=== PATIENT | male | born 1955 | race Two or more races ===

== ENCOUNTER → 2021-12-04 | Emergency (ER) | payer MEDICARE, OTHER ==
[~2021-12-04] VITALS: Ht 160 cm; Wt 77.1 kg
[~2021-12-04] MED LIST: HYDROcodone-ACET 5/325MG TAB ONE; HYDROcodone-ACET 5/325MG TAB PO ONE; TRAM-297 PO
[2021-12-04 16:56] VITALS: BP 113/69
== END | disposition home or self-care (01) ==
LOC: ER 15:51
DX: M23.91 Unspecified internal derangement of right knee (principal); I10 Essential (primary) hypertension; E03.9 Hypothyroidism, unspecified; Z79.899 Other long term (current) drug therapy
CPT/HCPCS: 73562

== ENCOUNTER 2022-08-03 11:19 | Emergency (ER) | payer MEDICARE, OTHER ==
[~2022-08-03] VITALS: Ht 160 cm; Wt 75.2 kg
[~2022-08-03 11:19] MED LIST changes: -HYDROcodone-ACET 5/325MG TAB ONE; -HYDROcodone-ACET 5/325MG TAB PO ONE
[2022-08-03 14:37] VITALS: BP 103/62
[2022-08-03] MEDS ORDERED: MUPI2CRE17 TOP (14:55)
== END 2022-08-03 15:02 | disposition home or self-care (01) ==
LOC: ER 11:19
DX: L73.9 Follicular disorder, unspecified (principal); B02.9 Zoster without complications; I10 Essential (primary) hypertension

== ENCOUNTER 2024-10-28 16:11 | Inpatient (IN) | payer MEDICARE, MEDICAID ==
[~2024-10-28] VITALS: Ht 160 cm; Wt 80.9 kg
[~2024-10-28 16:11] MED LIST changes: +MUPI2CRE17 TOP
--- NOTE | 2024-10-28 16:21 | ED.PDOC ---
History of Present Illness HPI Comments 69-year-old male brought by paramedics because of shortness a breath. Family members noticed that he has been having difficulty breathing while sitting and walking with his walker. His saturation when paramedics arrived was 90% on room air he was given a breathing treatments for which he had went up to 91%. His blood pressure on arrival was 94/60 with a heart rate 97. Family members were having the flu. Does have a history of CVA hypertension. His speech affected with CVA. Denies any other symptoms. Time Seen by MD: 16:15 Primary Care Provider: MUNA Reviewed Notes: Nurses Notes, Medications, Allergies Allergies: Coded Allergies: NO KNOWN ALLERGIES (Unverified , 08/03/22) Home Meds Active Scripts Mupirocin Calcium (Topical) (MUPIROCIN) 2 % Cre, 2 % TOP TID for 7 Days, #1 BOTTLE 0 Refills Prov:RENATA BRYANT 08/03/22 Tramadol Hcl (Ultram) 50 Mg Tab, 50 MG PO TID, #20 TAB Prov:LADONNA MORALES 12/04/21 Information Source: Patient, Emergency Med Personnel Mode of Arrival: EMS Severity: Moderate Timing: Hours Duration: Since onset Past Medical History PAST MEDICAL HISTORY: HTN, Thyroid Surgical History: Denies all surgeries Family History Family History: Reviewed,noncontributory to illness Social History Smoker: Non-Smoker Alcohol: Denies ETOH Use Drugs: Denies Drug Use Lives In: Home Constitutional: denies: chills, diaphoresis, fatigue, fever, malaise, sweats, weakness, others EENTM: denies: blurred vision, double vision, ear bleeding, ear discharge, ear drainage, ear pain, ear ringing, eye pain, eye redness, hearing loss, mouth pain, mouth swelling, nasal discharge, nose bleeding, nose congestion, nose pain, photophobia, tearing, throat pain, throat swelling, voice changes, others Respiratory: reports: shortness of breath; denies: cough, hemoptysis, orthopnea, SOB at rest, SOB with excertion, stridor, wheezing, others Cardiovascular: denies: chest pain, dizzy spells, diaphoresis, Dyspnea on e xertion, edema, irregular heart beat, left arm pain, lightheadedness, palpitations, PND, syncope, others Gastrointestinal: denies: abdomen distended, abdominal pain, blood streaked bowels, constipated, diarrhea, dysphagia, difficulty swallowing, hematemesis, melena, nausea, poor appetite, poor fluid intake, rectal bleeding, rectal pain, vomiting, others Genitourinary: denies: burning, dysuria, flank pain, frequency, hematuria, incontinence, penile discharge, penile sore, pain, testicle pain, testicle swelling, urgency, others Neurological: denies: dizziness, fainting, headache, left sided numbness, left sided weakness, numbness, paresthesia, pre-existing deficit, right sided numbness, right sided weakness, seizure, speech problems, tingling, tremors, weakness, others Musculoskeletal: denies: back pain, gout, joint pain, joint swelling, muscle pain, muscle stiffness, neck pain, others Integumetry: denies: bruises, change in color, change in hair/nails, dryness, laceration, lesions, lumps, rash, wounds, others Allergic/Immunocompromised: denies: Difficulty Healing, Frequent Infections, Hives, Itching, others Hematologic/Lymphatic: denies: anemia, blood clots, easy bleeding, easy bruising, swollen glands, others Endocrine: denies: excessive hunger, excessive sweating, excessive thirst, excessive urination, flushing, intolerance to cold, intolerance to heat, unexplained weight gain, unexplained weight loss, others Psychiatric: denies: anxiety, bipolar disorder, depression, hopeless, panic disorder, schizophrenia, sleepless, suicidal, others Physical Exam General Appearance: Moderate Distress HEENT: Normal ENT Inspection, Pharynx Normal, TMs Normal Neck: Full Range of Motion, Non-Tender, Normal, Normal Inspection Respiratory: Accessory Muscle Use, Other (Coarse breath sounds) Cardiovascular: No Edema, No JVD, No Murmur, No Gallop, Normal Peripheral Pulses, Regular Rate/Rhythm Breast Exam: Deferred Gastrointestinal: No Organomegaly, Non Tender, No Pulsatile Mass, Normal Bowel Sounds, Soft Genitalia: Deferred Pelvic: Deferred Rectal: Deferred Extremities: No calf tenderness, No pedal edema Musculoskeletal : Apperance: Normal Neurologic: Alert, No Motor Deficits, No Sensory Deficits, Speech Problem Cerebellar Function: NOT DONE Reflexes: NOT DONE Skin: Normal Color Peripheral Pulses: 3+ Radial (R), 3+ Radial (L) Lymphatic: No Adenopathy Was a procedure done? Was a procedure done?: No Differential Dx Considerations may include: Pneumonitis Viral infection X-Ray, Labs, Meds, VS Vital Signs Date Time Temp Pulse Resp B/P (MAP) Pulse Ox O2 Delivery O2 Flow Rate FiO2 10/28/24 16:45 98.3 98 21 101/56 (71) 93 98.3 10/28/24 16:39 24 92 Room Air* 0 21 10/28/24 16:18 98.1 100 22 94/64 (74) 94 Lab Test 10/28/24 16:40 Range/Units White Blood Count 9.6 4.4-10.8 10^3/uL Red Blood Count 4.96 4.5-5.90 10^6/uL Hemoglobin 15.2 13.5-17.5 g/dL Hematocrit 45.4 41.0-53.0 % Mean Corpuscular Volume 91.6 80.0-100.0 fL Mean Corpuscular Hemoglobin 30.6 28.0-32.0 pg Mean Corpuscular Hemoglobin Concent 33.4 32.0-36.0 g/dL Red Cell Distribution Width 14.0 11.8-14.3 % Platelet Count 137 L 140-450 10^3/uL Mean Platelet Volume 8.9 6.9-10.8 fL Neutrophils (%) (Auto) 50.7 37.0-80.0 % Lymphocytes (%) (Auto) 38.6 10.0-50.0 % Monocytes (%) (Auto) 10.3 0.0-12.0 % Eosinophils (%) (Auto) 0.1 0.0-7.0 % Basophils (%) (Auto) 0.3 0.0-2.0 % Neutrophils # (Auto) 4.9 1.6-8.6 10 ^3/uL Lymphocytes # (Auto) 3.7 0.4-5.4 10 ^3/uL Monocytes # (Auto) 1.0 0-1.3 10 ^3/uL Eosinophils # (Auto) 0 0-0.8 10 ^3/uL Basophils # (Auto) 0 0-0.2 10 ^3/uL Nucleated Red Blood Cells 0.1 % Sodium Level 141 136-145 mmol/L Potassium Level 3.9 3.5-5.1 mmol/L Chloride Level 110 H 98-107 mmol/L Carbon Dioxide Level 21 20-31 mmol/L Anion Gap 10 5-15 Blood Urea Nitrogen 35 H 9-23 mg/dL Creatinine 1.58 H 0.700-1.30 mg/dL Glomerular Filtration Rate Calc 47 >90 mL/min BUN/Creatinine Ratio 22.2 H 10.0-20.0 Serum Glucose 123 H 74-106 mg/dL Calcium Level 9.7 8.7-10.4 mg/dL Current Medications Medications (Trade) Dose Ordered Sig/Lalito Route Start Time Stop Time Status Last Admin Sodium Chloride 1,000 ml @ 150 mls/hr Q6H40M ONCE IV 10/28/24 16:30 10/28/24 23:09 10/28/24 16:58 Methylprednisolone Sodium Succinate (Solu Medrol) 125 mg ONCE ONCE IV 10/28/24 16:30 10/28/24 16:31 DC 10/28/24 16:58 Albuterol (Ventolin Medneb) 5 mg ONCE ONCE NEB 10/28/24 16:30 10/28/24 16:31 DC 10/28/24 16:39 Ipratropium [place] (Atrovent Medneb) 0.5 mg ONCE ONCE NEB 10/28/24 16:30 10/28/24 16:31 DC 10/28/24 16:39 Patient alert. Complaining of shortness a breath. Saturation in the 90s. Mentating well. Speech affected after his stroke. Possible pneumonitis. Possible pneumonia. Placed on oxygen. Was given steroid. Was given breathing treatment. BUN creatinine elevated. Blood sugar slightly elevated. Explained to the patient. Continue cardiac monitoring. Time of 1ST Reevaluation: 16:19 Reevaluation 1ST: Unchanged Patient Education/Counseling: Diagnosis, Treatment, Prognosis Family Education/Counseling: No Family Present Departure 1 Departure Time of Disposition: 16:20 Impression: Primary Impression: Pneumonitis Additional Impression: Chronic kidney disease Qualified Codes: N18.9 - Chronic kidney disease, unspecified Disposition: ADMITTED INPATIENT Admit to: Med Surg Condition: Guarded Critical Care Note Critical Care Time?: Yes (45 min-critical care time only) Critical care comment: Placed on oxygen Stability Stability form required: No Heart Score Heart Score: Heart Score Response (Comments) Value History N/A 0 EKG N/A 0 Age N/A 0 Risk Factors N/A 0 Troponin N/A 0 Total 0 SHANNON ROBERTS MD Oct 28, 2024 16:20
[2024-10-28] MEDS: ALBUTEROL SULF 2.5 MG/0.5ML(0.5%) NEB SOLN NEB ONE (16:39)
[2024-10-28] MEDS: IPRATROPIUM BROM 0.5 MG/2.5ML INH SOL NEB ONE (16:39)
[2024-10-28 16:54] LABS: Basophils # (auto) 0 10 ^3/uL (0-0.2); Basophils % (auto) 0.3 % (0.0-2.0); Eosinophils # (auto) 0 10 ^3/uL (0-0.8); Eosinophils % (auto) 0.1 % (0.0-7.0); Hematocrit 45.4 % (41.0-53.0); Hemoglobin 15.2 g/dL (13.5-17.5); Lymphocytes # (auto) 3.7 10 ^3/uL (0.4-5.4); Lymphocytes % (auto) 38.6 % (10.0-50.0); Mean Corpuscular Hemoglobin 30.6 pg (28.0-32.0); Mean Corpuscular Hgb Conc. 33.4 g/dL (32.0-36.0); Mean Corpuscular Volume 91.6 fL (80.0-100.0); Monocytes % (auto) 10.3 % (0.0-12.0); Neutrophils # (auto) 4.9 10 ^3/uL (1.6-8.6); Neutrophils % (auto) 50.7 % (37.0-80.0); Nucleated Red Blood Cells % 0.1 %; Platelet Count (auto) 137 10^3/uL (140-450); Red Blood Cells 4.96 10^6/uL (4.5-5.90); White Blood Cell 9.6 10^3/uL (4.4-10.8)
[2024-10-28] MEDS: methylPREDNISolone SOD SUCC 125 MG/2 ML VL IV ONE (16:58)
[2024-10-28] MEDS: SODIUM CHLORIDE 0.9% 1,000 ML IV ONE (16:58)
[2024-10-28 17:04] LABS: Potassium 3.9 mmol/L (3.5-5.1); Sodium 141 mmol/L (136-145)
[2024-10-28 17:05] LABS: Anion Gap 10 (5-15); Calcium 9.7 mg/dL (8.7-10.4); Carbon Dioxide 21 mmol/L (20-31)
[2024-10-28 17:09] VITALS: O2SAT 93
[2024-10-28 17:10] LABS: BUN/Creatinine Ratio 22.2 (10.0-20.0); Blood Urea Nitrogen 35 mg/dL (9-23); Chloride 110 mmol/L (98-107); Glucose 123 mg/dL (74-106)
--- NOTE | 2024-10-28 17:27 | ECG ---
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
--- NOTE | 2024-10-28 17:48 | DVH ---
CHEST RADIOGRAPH Indication: sob Technique: Single frontal view of the chest was obtained Comparison: None FINDINGS: Lines and Tubes: None Lungs: No focal consolidation. Bronchovascular crowding due to low lung volumes. Pleura: No effusion. No pneumothorax. Cardiomediastinal contours: Mild cardiomegaly. Bones: No acute osseous abnormality. Old right-sided rib fracture deformities IMPRESSION: Bronchovascular crowding due to low lung volumes. Underlying mild pulmonary vascular congestion can not be excluded.
[2024-10-28 19:01] LABS: Rapid Influenza A Negative (Negative); Rapid Influenza B Negative (Negative)
[2024-10-28 19:05] LABS: COVID19 ANTIGEN SOFIA FIA POSITIVE (NEGATIVE)
[2024-10-28 20:11] LABS: Urine Bacteria FEW /hpf (None Seen); Urine Blood 2+ /uL (Negative); Urine Clarity Turbid (Clear); Urine Color Yellow (Yellow); Urine Hyaline Cast MANY /lpf (0 - 2); Urine Mucus FEW (None Seen); Urine Protein, UAD 1+ (Negative); Urine Specific Gravity 1.024 (1.001-1.035); Urine Sperm PRESENT /hpf (None Seen); Urine Squamous Epithelial Cell FEW /hpf (<5); Urine Urobilinogen 2 mg/dL (Negative); Urine WBC 8 /HPF (0-3); Urine pH 5.5 (5.0-9.0)
[2024-10-28 21:41] LABS: INR 0.97 (0.9-1.15); Partial Thromboplastin Time 27.3 SEC (24.5-34.5); Prothrombin Time 10.3 sec (9.3-11.8)
[2024-10-28] MEDS ORDERED: REMDESIVIR PER PHARMACY 0 ML IV SCH (22:00)
[2024-10-28 22:08] LABS: Triglycerides 127 mg/dL (< 150)
[2024-10-28 22:09] LABS: LDL Cholesterol 34 mg/dL (< 100)
[2024-10-28 22:10] LABS: Cholesterol 80 mg/dL (< 200)
[2024-10-28 22:14] LABS: HDL Cholesterol 27 mg/dL (40-59)
[2024-10-28 22:15] LABS: Opiate Scree,Urine Pos (NEGATIVE); Phencyclidine Screen, Urine Neg (NEGATIVE)
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
[2024-10-28 22:22] LABS: Amphetamine Screen, Urine Neg (NEGATIVE); Barbiturate Scree,Urine Neg (NEGATIVE); Benzodiazephine Screen, Urine Neg (NEGATIVE); Cannabinoid Screen, Urine Neg (NEGATIVE); Cocaine Screen, Urine Neg (NEGATIVE)
[2024-10-29] VITALS (8 sets, daily range): BP systolic 103–118; BP diastolic 70–71; PULSE 89–119; RESP 16–24; TEMP 97.7–98.7; O2SAT 92–95
[2024-10-29 04:32] LABS: Basophils # (auto) 0 10 ^3/uL (0-0.2); Basophils % (auto) 0.1 % (0.0-2.0); Eosinophils # (auto) 0 10 ^3/uL (0-0.8); Hemoglobin 15.3 g/dL (13.5-17.5); Lymphocytes # (auto) 2.7 10 ^3/uL (0.4-5.4); Lymphocytes % (auto) 33.8 % (10.0-50.0); Mean Corpuscular Hemoglobin 30.6 pg (28.0-32.0); Mean Corpuscular Hgb Conc. 33.2 g/dL (32.0-36.0); Mean Corpuscular Volume 92.1 fL (80.0-100.0); Monocytes # (auto) 0.2 10 ^3/uL (0-1.3); Monocytes % (auto) 2.7 % (0.0-12.0); Neutrophils # (auto) 5.1 10 ^3/uL (1.6-8.6); Neutrophils % (auto) 63.4 % (37.0-80.0); Nucleated Red Blood Cells % 0.1 %; Platelet Count (auto) 138 10^3/uL (140-450); Red Cell Distribution Width 14.1 % (11.8-14.3); White Blood Cell 8.1 10^3/uL (4.4-10.8)
[2024-10-29 04:48] LABS: Albumin 4.5 g/dL (3.2-4.8); Alkaline Phosphatase 49 U/L (46-116); Anion Gap 10 (5-15); BUN/Creatinine Ratio 31.4 (10.0-20.0); Bilirubin, Total 0.9 mg/dL (0.2-1.0); Calcium 10.2 mg/dL (8.7-10.4); Carbon Dioxide 20 mmol/L (20-31); Potassium 4.7 mmol/L (3.5-5.1); Sodium 142 mmol/L (136-145); Total Protein 6.5 g/dL (5.7-8.2)
[2024-10-29 04:50] LABS: Alanine Aminotransferase 96 U/L (7-40); Aspartate Aminotransferase 273 U/L (13-40); Blood Urea Nitrogen 32 mg/dL (9-23); Chloride 112 mmol/L (98-107); Glucose 149 mg/dL (74-106)
[2024-10-29] MEDS ORDERED: REMDESIVIR 200mg in NS 210mL LOADING DOSE ADULT IV ONE (08:45)
[2024-10-29] MEDS: ATORVASTATIN 20 MG TAB PO SCH (09:41)
[2024-10-29] MEDS: cefTRIAXone 1GM/50ML D5W 50 ML IV SCH (09:41)
[2024-10-29] MEDS: DexAMETHasone SOD PHOS 10MG/1ML VIAL INJ IV SCH (09:42)
[2024-10-29] MEDS: ENOXAPARIN SOD 40 MG/0.4 ML SYRINGE SC SCH (09:43)
[2024-10-29] MEDS: AZITHROMYCIN 500MG/ 250ML 250 ML IV SCH (09:43)
[2024-10-29] MEDS: CALQUENCE 100 MG PO SCH ×2 (10:00→20:47)
[2024-10-29] MEDS ORDERED: ALBUTEROL SULF HFA 90MCG INH 200DOSE IN SCH (10:00)
[2024-10-29] MEDS ORDERED: IPRATROPIUM BROM 0.5 MG/2.5ML INH SOL NEB SCH (10:00)
[2024-10-29] MEDS ORDERED: ALBUTEROL SULF 2.5 MG/0.5ML(0.5%) NEB SOLN NEB SCH (10:00)
[2024-10-29] MEDS ORDERED: ENOXAPARIN SOD 40 MG/0.4 ML SYRINGE SC SCH (10:00)
[2024-10-29] MEDS: REMDESIVIR 200mg in NS 210mL LOADING DOSE ADULT IV ONE (10:30)
[2024-10-29 10:49] LABS: Free T4 (Free Thyroxine) 1.63 ng/dL (0.89-1.76)
[2024-10-29] MEDS: ALBUTEROL SULF HFA 90MCG INH 200DOSE IN SCH (11:25)
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
--- NOTE | 2024-10-29 16:43 | DVH ---
INDICATION: Transaminitis TECHNIQUE: Multiple real-time sonographic images of the abdomen were obtained. COMPARISON: None FINDINGS: Increased echogenicity of the liver compatible fatty infiltration Patient status post cholecystectomy Common bile duct measures 7.4 mm Pancreas not seen Right kidney is normal Difficult exam secondary body habitus No hydronephrosis No ascites Normal inferior vena cava No hepatomegaly IMPRESSION: 1. Mild fatty infiltration of the liver
[2024-10-29] MEDS: ACETAMINOPHEN 325 MG TAB PO PRN (21:57)
[2024-10-30] VITALS (11 sets, daily range): BP systolic 105–139; BP diastolic 48–94; PULSE 84–127; RESP 18–32; TEMP 97.8–100.3; O2SAT 91–98
[2024-10-30 06:23] LABS: Basophils # (auto) 0 10 ^3/uL (0-0.2); Basophils % (auto) 0.1 % (0.0-2.0); Eosinophils # (auto) 0 10 ^3/uL (0-0.8); Hematocrit 45.1 % (41.0-53.0); Hemoglobin 14.9 g/dL (13.5-17.5); Lymphocytes # (auto) 1.9 10 ^3/uL (0.4-5.4); Mean Corpuscular Hemoglobin 30.6 pg (28.0-32.0); Mean Corpuscular Volume 92.6 fL (80.0-100.0); Monocytes # (auto) 0.6 10 ^3/uL (0-1.3); Neutrophils # (auto) 7.5 10 ^3/uL (1.6-8.6); Neutrophils % (auto) 74.9 % (37.0-80.0); Nucleated Red Blood Cells % 0.1 %; Platelet Count (auto) 130 10^3/uL (140-450); Red Blood Cells 4.87 10^6/uL (4.5-5.90); White Blood Cell 10.1 10^3/uL (4.4-10.8)
[2024-10-30 06:37] LABS: Albumin 4.5 g/dL (3.2-4.8); Alkaline Phosphatase 50 U/L (46-116); Anion Gap 9 (5-15); BUN/Creatinine Ratio 28.7 (10.0-20.0); Bilirubin, Total 0.9 mg/dL (0.2-1.0); Carbon Dioxide 22 mmol/L (20-31); Potassium 4.1 mmol/L (3.5-5.1); Sodium 140 mmol/L (136-145); Total Protein 6.4 g/dL (5.7-8.2)
[2024-10-30 06:44] LABS: Alanine Aminotransferase 91 U/L (7-40); Aspartate Aminotransferase 192 U/L (13-40); Blood Urea Nitrogen 29 mg/dL (9-23); Calcium 10.6 mg/dL (8.7-10.4); Chloride 109 mmol/L (98-107); Glucose 114 mg/dL (74-106)
[2024-10-30] MEDS: ENOXAPARIN SOD 40 MG/0.4 ML SYRINGE SC SCH (10:17)
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
--- NOTE | 2024-10-30 13:17 | DVH ---
Bilateral lower extremity venous duplex Clinical History: Swelling Comparison: None Technique: Duplex Doppler evaluation of the deep venous systems of both lower extremities from the common femora l veins to the popliteal veins including color Doppler and spectral/pulsed waveform analysis was perf ormed. Findings: RIGHT SIDE: The common femoral vein demonstrates appropriate compressibility and waveform variability. There is compressibility/patency of the great saphenous vein at the proximal thigh. The femoral vein demonstrates appropriate compressibility and waveform variability. The deep femoral vein demonstrates appropriate compressibility and waveform variability. The popliteal vein demonstrates appropriate compressibility and waveform variability. There is normal compressibility at the tibioperoneal trunk. LEFT SIDE: The common femoral vein demonstrates appropriate compressibility and waveform variability. There is compressibility/patency of the great saphenous vein at the proximal thigh. The femoral vein demonstrates appropriate compressibility and waveform variability. The deep femoral vein demonstrates appropriate compressibility and waveform variability. The popliteal vein demonstrates appropriate compressibility and waveform variability. There is normal compressibility at the tibioperoneal trunk. Impression: No right or left femoropopliteal venous thrombosis.
[2024-10-30] MEDS: DOXYCYCLINE 100MG/100ML 100 ML IV ONE (14:37)
[2024-10-30] MEDS ORDERED: REMDESIVIR 100mg in NS 230mL (5 DAY REGIMEN) IV SCH (15:00)
[2024-10-30] MEDS ORDERED: REMDESIVIR 100mg in NS 230mL (3 DAY REGIMEN) IV SCH (15:00)
[2024-10-30 15:56] LABS: CRP High Sensitivity 1.58 mg/dL (<1.0)
[2024-10-30] MEDS: DOXYCYCLINE 100 MG TAB/CAP PO SCH (21:24)
[2024-10-31] VITALS (13 sets, daily range): BP systolic 99–123; BP diastolic 60–77; PULSE 70–97; RESP 15–19; TEMP 97.7–98.3; O2SAT 93–100
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
[2024-10-31] MEDS: ATORVASTATIN 20 MG TAB PO SCH (21:42)
[2024-11-01] VITALS (13 sets, daily range): BP systolic 103–127; BP diastolic 62–80; PULSE 68–111; RESP 16–24; TEMP 98–98.3; O2SAT 91–98
[2024-11-01] MEDS ORDERED: IBUP-1455 PO (04:50)
[2024-11-01] MEDS ORDERED: LOPE-62 PO (04:50)
[2024-11-01] MEDS ORDERED: LATA0.008 EACHEYE (04:50)
[2024-11-01] MEDS ORDERED: LEVO125T7 PO (04:50)
[2024-11-01] MEDS ORDERED: METO-289 (04:50)
[2024-11-01] MEDS ORDERED: TEMA7.5C11 (04:50)
[2024-11-01] MEDS ORDERED: LISI20TA56 (04:50)
[2024-11-01] MEDS ORDERED: ROSU5TAB24 (04:50)
[2024-11-01] MEDS ORDERED: MECL-90 PO (04:53)
[2024-11-01 05:49] LABS: Basophils # (auto) 0 10 ^3/uL (0-0.2); Eosinophils # (auto) 0 10 ^3/uL (0-0.8); Hematocrit 45.8 % (41.0-53.0); Hemoglobin 15.1 g/dL (13.5-17.5); Lymphocytes # (auto) 2.6 10 ^3/uL (0.4-5.4); Mean Corpuscular Hemoglobin 30.2 pg (28.0-32.0); Mean Corpuscular Hgb Conc. 32.9 g/dL (32.0-36.0); Mean Corpuscular Volume 91.7 fL (80.0-100.0); Monocytes # (auto) 0.9 10 ^3/uL (0-1.3); Monocytes % (auto) 8.4 % (0.0-12.0); Neutrophils # (auto) 7.2 10 ^3/uL (1.6-8.6); Neutrophils % (auto) 67.6 % (37.0-80.0); Nucleated Red Blood Cells % 0.1 %; Platelet Count (auto) 121 10^3/uL (140-450); Red Blood Cells 4.99 10^6/uL (4.5-5.90); Red Cell Distribution Width 13.7 % (11.8-14.3); White Blood Cell 10.7 10^3/uL (4.4-10.8)
[2024-11-01 06:02] LABS: Alkaline Phosphatase 49 U/L (46-116); Anion Gap 8 (5-15); Blood Urea Nitrogen 22 mg/dL (9-23); Carbon Dioxide 24 mmol/L (20-31); Chloride 106 mmol/L (98-107); Potassium 4.8 mmol/L (3.5-5.1); Sodium 138 mmol/L (136-145)
[2024-11-01 06:03] LABS: Albumin 4.4 g/dL (3.2-4.8); Bilirubin, Total 1.1 mg/dL (0.2-1.0); Total Protein 6.4 g/dL (5.7-8.2)
[2024-11-01 06:19] LABS: Alanine Aminotransferase 65 U/L (7-40); Aspartate Aminotransferase 54 U/L (13-40); Glucose 123 mg/dL (74-106)
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
[2024-11-01] MEDS: FUROSEMIDE 20 MG/2 ML VIAL IV ONE (10:11)
[2024-11-01 12:42] LABS: COVID19 ANTIGEN SOFIA FIA NEGATIVE (NEGATIVE)
[2024-11-01] MEDS ORDERED: REMDESIVIR PER PHARMACY 0 ML IV SCH (16:30)
[2024-11-01] MEDS: REMDESIVIR 100mg in NS 230mL (5 DAY REGIMEN) IV SCH (19:37)
[2024-11-01] MEDS: guaiFENesin 200 MG/10 ML UD PO PRN (19:44)
[2024-11-02] VITALS (13 sets, daily range): BP systolic 100–128; BP diastolic 59–78; PULSE 71–115; RESP 17–22; TEMP 98.1–99.2; O2SAT 86–99
[2024-11-02] MEDS: LEVOTHYROXINE SODIUM 50 MCG TAB PO SCH (06:25)
[2024-11-02 07:28] LABS: Albumin 4.4 g/dL (3.2-4.8); Alkaline Phosphatase 51 U/L (46-116); Anion Gap 9 (5-15); Aspartate Aminotransferase 35 U/L (13-40); BUN/Creatinine Ratio 35.7 (10.0-20.0); Carbon Dioxide 25 mmol/L (20-31); Chloride 104 mmol/L (98-107); Potassium 4.3 mmol/L (3.5-5.1); Sodium 138 mmol/L (136-145); Total Protein 6.6 g/dL (5.7-8.2)
[2024-11-02 07:29] LABS: Alanine Aminotransferase 56 U/L (7-40); Bilirubin, Total 1.2 mg/dL (0.2-1.0); Blood Urea Nitrogen 30 mg/dL (9-23); Calcium 11.2 mg/dL (8.7-10.4); Glucose 107 mg/dL (74-106)
[2024-11-02] MEDS ORDERED: DOXY150C6 PO (11:28)
[2024-11-02] MEDS ORDERED: REMDESIVIR 100mg in NS 230mL (5 DAY REGIMEN) IV SCH (15:00)
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
[2024-11-03] VITALS (19 sets, daily range): BP systolic 84–125; BP diastolic 8–84; PULSE 61–98; RESP 17–20; TEMP 97.7–98.5; O2SAT 89–98
[2024-11-03 07:19] LABS: Chloride 106 mmol/L (98-107); Potassium 4.4 mmol/L (3.5-5.1); Sodium 139 mmol/L (136-145)
[2024-11-03 07:20] LABS: Anion Gap 11 (5-15); Carbon Dioxide 22 mmol/L (20-31)
[2024-11-03 07:24] LABS: Calcium 10.9 mg/dL (8.7-10.4)
[2024-11-03 07:25] LABS: BUN/Creatinine Ratio 33.7 (10.0-20.0)
[2024-11-03 07:45] LABS: Blood Urea Nitrogen 30 mg/dL (9-23); Glucose 122 mg/dL (74-106)
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
[2024-11-03 11:02] LABS: Base Excess -0.1 mmol/L (-2.0-3.0)
[2024-11-03] MEDS: IPRATROPIUM BROM 0.5 MG/2.5ML INH SOL NEB SCH (11:30)
[2024-11-03] MEDS: LEVALBUTEROL HCL 1.25 MG/3 ML NEB NEB SCH (11:30)
[2024-11-03 12:31] LABS: Basophils # (auto) 0 10 ^3/uL (0-0.2); Basophils % (auto) 0.1 % (0.0-2.0); Eosinophils # (auto) 0 10 ^3/uL (0-0.8); Eosinophils % (auto) 0.1 % (0.0-7.0); Hemoglobin 15.4 g/dL (13.5-17.5); Lymphocytes # (auto) 2.7 10 ^3/uL (0.4-5.4); Lymphocytes % (auto) 21.3 % (10.0-50.0); Mean Corpuscular Hemoglobin 30.4 pg (28.0-32.0); Mean Corpuscular Hgb Conc. 33.4 g/dL (32.0-36.0); Mean Corpuscular Volume 90.9 fL (80.0-100.0); Monocytes # (auto) 1.2 10 ^3/uL (0-1.3); Monocytes % (auto) 9.1 % (0.0-12.0); Neutrophils # (auto) 8.9 10 ^3/uL (1.6-8.6); Neutrophils % (auto) 69.4 % (37.0-80.0); Nucleated Red Blood Cells % 0.2 %; Platelet Count (auto) 177 10^3/uL (140-450); Red Blood Cells 5.06 10^6/uL (4.5-5.90); White Blood Cell 12.8 10^3/uL (4.4-10.8)
--- NOTE | 2024-11-03 12:42 | DVH ---
CHEST RADIOGRAPH Indication: deep inspiration view, tachypnea Technique: Single frontal view of the chest was obtained COMPARISON: XY CHEST PORTABLE on DOS: 10/28/24 FINDINGS: Lines and Tubes: None Lungs: Patchy atelectasis left upper lung field peripherally Pleura: No effusion. No pneumothorax. Cardiomediastinal contours: Stable borderline cardiomegaly Bones: Prior right-sided rib deformities IMPRESSION: 1. Patchy atelectasis left upper lobe peripherally No consolidation No pleural effusions No adenopathy
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
[2024-11-03] MEDS ORDERED: IBU600T PO (14:54)
[2024-11-03] MEDS ORDERED: LATA0.0020 EACHEYE (14:54)
[2024-11-03] MEDS: MEROPENEM 2GM/ 250ML 250 ML IV SCH (21:54)
--- NOTE | 2024-11-03 22:15 | DVH ---
Procedure: CT CT ANGIO CHEST CONTRAST Reason for study/Clinical History: Rule out pulmonary embolism Comparison Study: None available at time of dictation. Exam Date: 11/03/2024 08:28 PM Radiation Dose Information: CT Dose: CTDI volume is 25.6 mGy. Dose-length product is 2049.38 mGy*cm Contrast: Type of contrast: Omnipaque 350 Contrast inject: 100 mL Contrast wasted:0 TECHNIQUE: After the uneventful administration of intravenous contrast intravenously, CT imaging was performed through the chest. Coronal and sagittal reformations were performed by the technologist. MIP images were obtained on submitted for interpretation. FINDINGS: Lower Neck: Visualized portions of the thyroid gland are unremarkable. Aorta and Vasculature: Normal caliber of thoracic aorta. Lymph Nodes: No enlarged intrathoracic lymph nodes. Mediastinum: Heart size is normal. There is no pericardial effusion. The esophagus is unremarkable. Lungs: Scattered airspace disease bilaterally with areas of scarring or linear atelectasis. Findings extend from the apex the lung bases bilaterally. Musculoskeletal: No acute osseous abnormality. Upper abdomen: Limited portions of the upper abdomen are unremarkable. IMPRESSION: 1. No findings of pulmonary emboli or pulmonary artery hypertension. 2. No findings to suggest right heart strain 3. Bilateral scattered pulmonary infiltrates areas of atelectasis or scarring. All CT scans at this medical facility are performed using dose modulation techniques as appropriate t o a performed exam including the following: Automated exposure control was utilized; adjustment of th e MA and/or KV according to patient size; and use of iterative reconstruction technique.
[2024-11-04] VITALS (15 sets, daily range): BP systolic 99–109; BP diastolic 64–78; PULSE 71–101; RESP 15–20; TEMP 97.7–98.5; O2SAT 91–96
[2024-11-04 07:21] LABS: Alkaline Phosphatase 56 U/L (46-116); Anion Gap 10 (5-15); Carbon Dioxide 23 mmol/L (20-31); Chloride 105 mmol/L (98-107); Glucose 105 mg/dL (74-106); Potassium 4.1 mmol/L (3.5-5.1); Sodium 138 mmol/L (136-145)
[2024-11-04 07:22] LABS: Bilirubin, Total 0.9 mg/dL (0.2-1.0)
[2024-11-04 07:28] LABS: BUN/Creatinine Ratio 32.2 (10.0-20.0)
[2024-11-04 07:35] LABS: Hematocrit 45.5 % (41.0-53.0); Hemoglobin 15.4 g/dL (13.5-17.5); Mean Corpuscular Hemoglobin 30.8 pg (28.0-32.0); Mean Corpuscular Hgb Conc. 33.8 g/dL (32.0-36.0); Mean Corpuscular Volume 91.1 fL (80.0-100.0); Platelet Count (auto) 177 10^3/uL (140-450); Red Cell Distribution Width 13.7 % (11.8-14.3); White Blood Cell 12.5 10^3/uL (4.4-10.8)
[2024-11-04 07:39] LABS: Basophils % (manual) 0 (0.0-2.0); Blast Cells 0; Metamyelocytes % 0; Myelocytes % 0; Promyelocytes % 0
[2024-11-04 07:55] LABS: Alanine Aminotransferase 59 U/L (7-40); Aspartate Aminotransferase 43 U/L (13-40); Blood Urea Nitrogen 29 mg/dL (9-23); Calcium 10.6 mg/dL (8.7-10.4)
[2024-11-04 08:44] LABS: Band Neutrophils % (manual) 3; Eosinophils % (manual) 3 (0-7); Lymphocytes % (manual) 26 (10.0-50.0); Monocytes % (manual) 8 (0-12); Reactive Lymphocytes 2
[2024-11-04 08:45] LABS: Platelet Estimate Adequate
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
--- NOTE | 2024-11-04 22:56 | DVHPN2 ---
Progress Note - Dictate Date Seen: Nov 04, 2024 Medical Necessity Reason Pt with a Central, PICC or Fol: No Subjective Patient seen and examined at bedside. Remains on supplemental oxygen Overnight events reviewed. vital signs Vital Sign Date Time Temp Pulse Resp B/P (MAP) Pulse Ox O2 Delivery O2 Flow Rate FiO2 11/04/24 21:00 98.5 87 20 101/69 (80) 94 98.5 11/04/24 19:03 Oxymizer 10.0 11/04/24 19:03 N/A Total Intake and Output 11/03/24 11/03/24 11/04/24 15:00 23:00 07:00 Intake Total 50 ml 886 ml 950 ml Output Total 150 ml 310 ml 250 ml Balance -100 ml 576 ml 700 ml medications Current Medications Medications Dose Ordered Sig/Lalito Route Start Time Stop Time Status Last Admin Dose Admin Acetaminophen 650 mg Q6HP PRN PO 10/28/24 21:15 11/04/24 10:11 650 MG Dexamethasone Sodium Phosphate 6 mg DAILY IV 10/29/24 10:00 11/04/24 10:12 6 MG Albuterol 90 mcg Q4HR IN 10/29/24 10:00 Cancel Patient Own Medication 1 BID PO 10/29/24 22:00 11/04/24 10:22 1 Enoxaparin Sodium 40 mg DAILY SC 10/30/24 10:00 11/04/24 10:12 40 MG Atorvastatin Calcium 20 mg HS PO 10/31/24 22:00 11/03/24 21:55 20 MG Guaifenesin 200 mg Q6HP PRN PO 11/01/24 09:45 11/03/24 04:22 200 MG Levothyroxine Sodium 125 mcg QAM@0600 PO 11/02/24 06:00 11/04/24 05:33 125 MCG Levalbuterol HCl 1.25 mg Q6HR NEB 11/03/24 08:15 11/04/24 19:03 1.25 MG Ipratropium [place] 0.5 mg Q6HWA NEB 11/03/24 08:15 11/04/24 19:03 0.5 MG Meropenem 250 ml @ 83.3 mls/hr Q8HR IV 11/03/24 22:00 11/04/24 05:36 83.3 MLS/HR objective Gen.: Patient lying in bed in no apparent distress. On supplemental oxygen. Head: Normocephalic, atraumatic. Eyes: EOMI/PERRLA. Ears: Normal hearing. Normal anatomy. Neck/trachea: Trachea midline, supple. Nose: Normal external anatomy. Mouth: Moist mucous membranes. Chest: Decreased air entry bilaterally. No wheezing or rhonchi. Cardiovascular: Positive S1, positive S2. Regular rate and rhythm. Abdomen: Positive bowel sounds in all 4 quadrants. Soft, non-tender, non- distended. : Deferred. Rectal: Deferred. Skin: Warm, dry. Intact. Extremities: 2+ radial pulses bilaterally. No lower extremity edema. Neuro: Awake, alert, oriented x3. No gross motor or sensory deficits. Cranial nerves II through XII intact. Gait not assessed. laboratory and microbiology Laboratory Tests 11/04/24 05:53 Test 11/04/24 05:53 Range/Units Serum Glucose 105 74-106 mg/dL Assessment/Plan Impression: Acute hypoxic respiratory failure Atelectasis Leukocytosis COVID-19 Obesity, BMI 32 Events: Remains on supplemental oxygen, 10 LPM Oxymizer Taper O2 as tolerated CT chest report and images reviewed; no acute pulmonary emboli. No pulmonary hypertension. Bilateral scattered pulmonary opacities w/ atelectasis or scarring. Ultrasound venous Doppler of BLE shows no acute DVT. Continue bronchodilators Continue steroids Continue antibiotics Antitussive PRN Incentive spirometry Lovenox for DVT prophylaxis. Labs and imaging reviewed. Rest of plan as noted below. Plan: Supplemental oxygen Titrate to keep O2 sats above 92%. Increased O2 requirements Continue antibiotics Complete Remdesivir course Complete steroid course Incentive spirometry Monitor WBC Blood cultures, no growth after 5 days Monitor renal function. Monitor electrolytes. Supplement as necessary. Monitor ins and outs. Diet and lifestyle modifications for weight reduction Obesity - complicates all care DVT prophylaxis. Prognosis: Poor given patient's multiple co-morbidities. Rest of plan per hospitalist and other consultants. Thank you Dr. Wood for allowing me to participate in this patient's care. Further recommendations will depend on the patient's clinical course. Please do not hesitate to contact me if you have any questions or concerns. This medical document was created using an electronic medical record system with [employer] dictation system. Although these documentations are being carefully reviewed, there may still be some phonetic and typographical changes. The errors are purely typographical, due to imperfection on the software program, and do not reflect any compromise in the patient's medical care. Dietary Evaluation Review Comments: 1) Promote good PO intake 2) Continue plan of care Expected Outcomes/Goals: 1) appetite and labs to improve 2) f/u in 5 days Plan discussed with: Patient, Other (RN Roni) LESTER KING MD Nov 04, 2024 22:56
[2024-11-05] VITALS (15 sets, daily range): BP systolic 98–114; BP diastolic 60–78; PULSE 64–94; RESP 16–22; TEMP 97.3–98.3; O2SAT 6–98
[2024-11-05] MEDS: MEROPENEM 500MG IVPB 50 ML IV ONE (07:43)
[2024-11-05 07:47] LABS: Anion Gap 8 (5-15); Carbon Dioxide 23 mmol/L (20-31); Chloride 107 mmol/L (98-107); Potassium 4.3 mmol/L (3.5-5.1); Sodium 138 mmol/L (136-145)
[2024-11-05 07:48] LABS: Calcium 9.9 mg/dL (8.7-10.4)
[2024-11-05 07:53] LABS: BUN/Creatinine Ratio 33.3 (10.0-20.0); Magnesium 2.4 mg/dL (1.6-2.6)
[2024-11-05 07:56] LABS: Hemoglobin 14.7 g/dL (13.5-17.5); Mean Corpuscular Hgb Conc. 32.6 g/dL (32.0-36.0); Platelet Count (auto) 188 10^3/uL (140-450); Red Blood Cells 4.89 10^6/uL (4.5-5.90); Red Cell Distribution Width 13.4 % (11.8-14.3); White Blood Cell 16.8 10^3/uL (4.4-10.8)
[2024-11-05 08:00] LABS: Basophils % (manual) 0 (0.0-2.0); Blast Cells 0; Eosinophils % (manual) 0 (0-7); Metamyelocytes % 0; Myelocytes % 0; Promyelocytes % 0
[2024-11-05 08:01] LABS: Blood Urea Nitrogen 26 mg/dL (9-23); Glucose 130 mg/dL (74-106)
[2024-11-05 09:02] LABS: Band Neutrophils % (manual) 4; Lymphocytes % (manual) 18 (10.0-50.0); Monocytes % (manual) 6 (0-12); Platelet Estimate Adequate; Reactive Lymphocytes 1
[2024-11-05 09:03] LABS: RBC Morphology Normal
[2024-11-05] MEDS: DOCUSATE SOD 100 MG CAP PO SCH (09:22)
[2024-11-05] MEDS: DOXYCYCLINE 100 MG TAB/CAP PO ONE (11:47)
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
--- NOTE | 2024-11-05 22:27 | DVHPN2 ---
Progress Note - Dictate Date Seen: Nov 05, 2024 Medical Necessity Reason Pt with a Central, PICC or Fol: No Subjective Patient seen and examined at bedside. Remains on supplemental oxygen Overnight events reviewed. vital signs Vital Sign Date Time Temp Pulse Resp B/P (MAP) Pulse Ox O2 Delivery O2 Flow Rate FiO2 11/05/24 21:02 93 18 93 11/05/24 21:00 97.8 108/78 (88) 97.8 11/05/24 20:54 Nasal Cannula 6.0 11/05/24 20:54 44 Total Intake and Output 11/04/24 11/04/24 11/05/24 15:00 23:00 07:00 Intake Total 400 ml 490 ml Output Total 450 ml Balance -50 ml 490 ml medications Current Medications Medications Dose Ordered Sig/Lalito Route Start Time Stop Time Status Last Admin Dose Admin Acetaminophen 650 mg Q6HP PRN PO 10/28/24 21:15 11/04/24 10:11 650 MG Dexamethasone Sodium Phosphate 6 mg DAILY IV 10/29/24 10:00 11/05/24 09:22 6 MG Albuterol 90 mcg Q4HR IN 10/29/24 10:00 Cancel Patient Own Medication 1 BID PO 10/29/24 22:00 11/05/24 09:23 1 Enoxaparin Sodium 40 mg DAILY SC 10/30/24 10:00 11/05/24 09:22 40 MG Atorvastatin Calcium 20 mg HS PO 10/31/24 22:00 11/04/24 23:03 20 MG Guaifenesin 200 mg Q6HP PRN PO 11/01/24 09:45 11/05/24 17:03 200 MG Levothyroxine Sodium 125 mcg QAM@0600 PO 11/02/24 06:00 11/05/24 05:33 125 MCG Levalbuterol HCl 1.25 mg Q6HR NEB 11/03/24 08:15 11/05/24 20:54 1.25 MG Ipratropium [place] 0.5 mg Q6HWA NEB 11/03/24 08:15 11/05/24 20:54 0.5 MG Meropenem 250 ml @ 83.3 mls/hr Q8HR IV 11/03/24 22:00 11/05/24 14:14 83.3 MLS/HR Docusate Sodium 100 mg BID PO 11/05/24 10:00 11/05/24 09:22 100 MG Doxycycline Monohydrate 100 mg Q12HR PO 11/05/24 22:00 objective Gen.: Patient lying in bed in no apparent distress. On supplemental oxygen. Head: Normocephalic, atraumatic. Eyes: EOMI/PERRLA. Ears: Normal hearing. Normal anatomy. Neck/trachea: Trachea midline, supple. Nose: Normal external anatomy. Mouth: Moist mucous membranes. Chest: Decreased air entry bilaterally. No wheezing or rhonchi. Cardiovascular: Positive S1, positive S2. Regular rate and rhythm. Abdomen: Positive bowel sounds in all 4 quadrants. Soft, non-tender, non- distended. : Deferred. Rectal: Deferred. Skin: Warm, dry. Intact. Extremities: 2+ radial pulses bilaterally. No lower extremity edema. Neuro: Awake, alert, oriented x3. No gross motor or sensory deficits. Cranial nerves II through XII intact. Gait not assessed. laboratory and microbiology Laboratory Tests 11/05/24 07:03 Test 11/05/24 07:03 Range/Units Serum Glucose 130 H 74-106 mg/dL Assessment/Plan Impression: Acute hypoxic respiratory failure Dependence on supplemental oxygen Atelectasis Leukocytosis COVID-19 Obesity, BMI 32 Events: Remains on supplemental oxygen, 10 LPM --> 6 LPM Oxymizer Taper O2 as tolerated Improving O2 requirements CT chest report and images reviewed; no acute pulmonary emboli. No pulmonary hypertension. Bilateral scattered pulmonary opacities w/ atelectasis or scarring. Ultrasound venous Doppler of BLE shows no acute DVT. Continue bronchodilators Continue steroids Continue antibiotics Antitussive PRN Incentive spirometry Lovenox for DVT prophylaxis. Labs and imaging reviewed. Rest of plan as noted below. Plan: Supplemental oxygen Titrate to keep O2 sats above 92%. Continue antibiotics Completed Remdesivir course Complete steroid course Incentive spirometry Monitor WBC Blood cultures, no growth after 5 days Monitor renal function. Monitor electrolytes. Supplement as necessary. Monitor ins and outs. Diet and lifestyle modifications for weight reduction Obesity - complicates all care DVT prophylaxis. Prognosis: Poor given patient's multiple co-morbidities. Rest of plan per hospitalist and other consultants. Thank you Dr. Wood for allowing me to participate in this patient's care. Further recommendations will depend on the patient's clinical course. Please do not hesitate to contact me if you have any questions or concerns. This medical document was created using an electronic medical record system with [employer] computerized dictation system. Although these documentations are being carefully reviewed, there may still be some phonetic and typographical changes. The errors are purely typographical, due to imperfection on the software program, and do not reflect any compromise in the patient's medical care. Dietary Evaluation Review Comments: 1) Promote good PO intake 2) Continue plan of care Expected Outcomes/Goals: 1) appetite and labs to improve 2) f/u in 5 days Plan discussed with: Patient, Other (LINDY Fowler) LESTER KING MD Nov 05, 2024 22:27
[2024-11-05] MEDS: DOXYCYCLINE 100 MG TAB/CAP PO SCH (23:08)
[2024-11-06] VITALS (16 sets, daily range): BP systolic 106–128; BP diastolic 66–76; PULSE 54–104; RESP 18–26; TEMP 97.7–98.4; O2SAT 90–100
[2024-11-06] MEDS: MEROPENEM 2GM/ 250ML 250 ML IV SCH (06:35)
[2024-11-06 06:40] LABS: Anion Gap 8 (5-15); Carbon Dioxide 23 mmol/L (20-31); Chloride 106 mmol/L (98-107); Potassium 4.3 mmol/L (3.5-5.1); Sodium 137 mmol/L (136-145)
[2024-11-06 06:41] LABS: Calcium 9.8 mg/dL (8.7-10.4)
[2024-11-06 06:46] LABS: BUN/Creatinine Ratio 26.3 (10.0-20.0); Blood Urea Nitrogen 21 mg/dL (9-23)
[2024-11-06 06:47] LABS: Glucose 110 mg/dL (74-106)
[2024-11-06 07:02] LABS: Basophils # (auto) 0 10 ^3/uL (0-0.2); Basophils % (auto) 0.1 % (0.0-2.0); Eosinophils # (auto) 0 10 ^3/uL (0-0.8); Eosinophils % (auto) 0.1 % (0.0-7.0); Hematocrit 42.8 % (41.0-53.0); Hemoglobin 14.2 g/dL (13.5-17.5); Lymphocytes % (auto) 16.1 % (10.0-50.0); Mean Corpuscular Hemoglobin 30.3 pg (28.0-32.0); Mean Corpuscular Hgb Conc. 33.2 g/dL (32.0-36.0); Mean Corpuscular Volume 91.2 fL (80.0-100.0); Monocytes % (auto) 5.5 % (0.0-12.0); Neutrophils # (auto) 14.7 10 ^3/uL (1.6-8.6); Neutrophils % (auto) 78.2 % (37.0-80.0); Nucleated Red Blood Cells % 0.2 %; Platelet Count (auto) 210 10^3/uL (140-450); Red Blood Cells 4.69 10^6/uL (4.5-5.90); Red Cell Distribution Width 13.4 % (11.8-14.3); White Blood Cell 18.8 10^3/uL (4.4-10.8)
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
--- NOTE | 2024-11-06 22:17 | DVHPN2 ---
Progress Note - Dictate Date Seen: Nov 06, 2024 Medical Necessity Reason Pt with a Central, PICC or Fol: No Subjective Patient seen and examined at bedside. Remains on supplemental oxygen Overnight events reviewed. vital signs Vital Sign Date Time Temp Pulse Resp B/P (MAP) Pulse Ox O2 Delivery O2 Flow Rate FiO2 11/06/24 21:00 97.7 104 21 121/76 (91) 91 97.7 11/06/24 20:00 Nasal Cannula* 4 36 Total Intake and Output 11/05/24 11/05/24 11/06/24 15:00 23:00 07:00 Intake Total 610 ml 1050 ml 450 ml Output Total 300 ml 225 ml 700 ml Balance 310 ml 825 ml -250 ml medications Current Medications Medications Dose Ordered Sig/Lalito Route Start Time Stop Time Status Last Admin Dose Admin Acetaminophen 650 mg Q6HP PRN PO 10/28/24 21:15 11/04/24 10:11 650 MG Dexamethasone Sodium Phosphate 6 mg DAILY IV 10/29/24 10:00 11/06/24 09:10 6 MG Albuterol 90 mcg Q4HR IN 10/29/24 10:00 Cancel Patient Own Medication 1 BID PO 10/29/24 22:00 11/06/24 09:10 1 Enoxaparin Sodium 40 mg DAILY SC 10/30/24 10:00 11/06/24 09:09 40 MG Atorvastatin Calcium 20 mg HS PO 10/31/24 22:00 11/05/24 23:08 20 MG Guaifenesin 200 mg Q6HP PRN PO 11/01/24 09:45 11/05/24 23:25 200 MG Levothyroxine Sodium 125 mcg QAM@0600 PO 11/02/24 06:00 11/06/24 06:23 125 MCG Levalbuterol HCl 1.25 mg Q6HR NEB 11/03/24 08:15 11/06/24 17:54 1.25 MG Ipratropium [place] 0.5 mg Q6HWA NEB 11/03/24 08:15 11/06/24 17:55 0.5 MG Docusate Sodium 100 mg BID PO 11/05/24 10:00 11/06/24 09:08 100 MG Doxycycline Monohydrate 100 mg Q12HR PO 11/05/24 22:00 11/06/24 09:09 100 MG Meropenem 250 ml @ 83.3 mls/hr Q8HR IV 11/06/24 06:15 11/06/24 15:21 83.3 MLS/HR objective Gen.: Patient lying in bed in no apparent distress. On supplemental oxygen. Head: Normocephalic, atraumatic. Eyes: EOMI/PERRLA. Ears: Normal hearing. Normal anatomy. Neck/trachea: Trachea midline, supple. Nose: Normal external anatomy. Mouth: Moist mucous membranes. Chest: Decreased air entry bilaterally. No wheezing or rhonchi. Cardiovascular: Positive S1, positive S2. Regular rate and rhythm. Abdomen: Positive bowel sounds in all 4 quadrants. Soft, non-tender, non- distended. : Deferred. Rectal: Deferred. Skin: Warm, dry. Intact. Extremities: 2+ radial pulses bilaterally. No lower extremity edema. Neuro: Awake, alert, oriented x3. No gross motor or sensory deficits. Cranial nerves II through XII intact. Gait not assessed. laboratory and microbiology Laboratory Tests 11/06/24 05:39 Test 11/06/24 05:39 Range/Units Serum Glucose 110 H 74-106 mg/dL Assessment/Plan Impression: Acute hypoxic respiratory failure Dependence on supplemental oxygen Atelectasis Leukocytosis COVID-19 Obesity, BMI 32 Events: Remains on supplemental oxygen Currently 6 LPM Oxymizer --> 4 LPM NC Taper O2 as tolerated Improved O2 requirements Continue bronchodilators Continue steroids Continue antibiotics Antitussive PRN Incentive spirometry WBC trending up - possibly reactive due to steroids. Lovenox for DVT prophylaxis. Labs and imaging reviewed. Rest of plan as noted below. Plan: Supplemental oxygen Titrate to keep O2 sats above 92%. Continue antibiotics Completed Remdesivir course Complete steroid course Incentive spirometry Monitor WBC Blood cultures, no growth after 5 days Monitor renal function. Monitor electrolytes. Supplement as necessary. Monitor ins and outs. Diet and lifestyle modifications for weight reduction Obesity - complicates all care DVT prophylaxis. Prognosis: Poor given patient's multiple co-morbidities. Rest of plan per hospitalist and other consultants. Thank you Dr. Wood for allowing me to participate in this patient's care. Further recommendations will depend on the patient's clinical course. Please do not hesitate to contact me if you have any questions or concerns. This medical document was created using an electronic medical record system with Dragon computerized dictation system. Although these documentations are being carefully reviewed, there may still be some phonetic and typographical changes. The errors are purely typographical, due to imperfection on the software program, and do not reflect any compromise in the patient's medical care. Dietary Evaluation Review Comments: 1) Promote good PO intake 2) Continue plan of care Expected Outcomes/Goals: 1) appetite and labs to improve 2) f/u in 5 days Plan discussed with: Patient, Other (LINDY Arriaga) LESTER KING MD Nov 06, 2024 22:17
[2024-11-07] VITALS (24 sets, daily range): BP systolic 101–120; BP diastolic 70–79; PULSE 76–124; RESP 19–34; TEMP 97.8–100.4; O2SAT 91–96
[2024-11-07 08:21] LABS: Hematocrit 44.2 % (41.0-53.0); Hemoglobin 14.6 g/dL (13.5-17.5); Mean Corpuscular Hemoglobin 30.2 pg (28.0-32.0); Mean Corpuscular Volume 91.3 fL (80.0-100.0); Platelet Count (auto) 190 10^3/uL (140-450); Red Blood Cells 4.84 10^6/uL (4.5-5.90); Red Cell Distribution Width 13.6 % (11.8-14.3)
[2024-11-07 08:32] LABS: Band Neutrophils % (manual) 0; Basophils % (manual) 0 (0.0-2.0); Blast Cells 0; Eosinophils % (manual) 0 (0-7); Metamyelocytes % 0; Myelocytes % 0; Promyelocytes % 0
[2024-11-07 08:40] LABS: Chloride 105 mmol/L (98-107); Potassium 4.2 mmol/L (3.5-5.1); Sodium 137 mmol/L (136-145)
[2024-11-07 08:41] LABS: Anion Gap 9 (5-15); Calcium 9.8 mg/dL (8.7-10.4); Carbon Dioxide 23 mmol/L (20-31)
[2024-11-07 08:46] LABS: BUN/Creatinine Ratio 28.9 (10.0-20.0); Blood Urea Nitrogen 22 mg/dL (9-23)
[2024-11-07 08:47] LABS: Glucose 109 mg/dL (74-106)
[2024-11-07 09:17] LABS: Lymphocytes % (manual) 16 (10.0-50.0); Monocytes % (manual) 4 (0-12); Reactive Lymphocytes 1
[2024-11-07 09:18] LABS: Large Platelets FEW; Platelet Estimate Adequa
--- NOTE | 2024-11-07 15:12 | DVH ---
CHEST RADIOGRAPH Indication: Tachypnea, shortness of breath Technique: Single frontal view of the chest was obtained Comparison: XY CHEST XRAY 1 VIEW on DOS: 11/03/24, XY CHEST PORTABLE on DOS: 10/28/24, XY CHEST PORTABL E on DOS: 10/28/24 FINDINGS: Lines and Tubes: None Lungs: No focal consolidation. Bronchovascular crowding due to low lung volumes. Pleura: No effusion. No pneumothorax. Cardiomediastinal contours: Mild cardiomegaly. Bones: No acute osseous abnormality. Old right-sided rib fracture deformities IMPRESSION: Bronchovascular crowding due to low lung volumes. Underlying mild pulmonary vascular congestion can not be excluded.
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
--- NOTE | 2024-11-07 22:40 | DVHPN2 ---
Progress Note - Dictate Date Seen: Nov 07, 2024 Medical Necessity Reason Pt with a Central, PICC or Fol: No Subjective Patient seen and examined at bedside. Currently on BiPAP Overnight events reviewed. vital signs Vital Sign Date Time Temp Pulse Resp B/P (MAP) Pulse Ox O2 Delivery O2 Flow Rate FiO2 11/07/24 21:54 115 92 Facial BiPAP Mask 50 11/07/24 21:31 99.4 11/07/24 19:23 12 11/07/24 19:23 24 11/07/24 17:00 101/71 (81) Total Intake and Output 11/06/24 11/06/24 11/07/24 15:00 23:00 07:00 Intake Total 250 ml 250 ml 450 ml Output Total 0 ml 570 ml Balance 250 ml 250 ml -120 ml medications Current Medications Medications Dose Ordered Sig/Lalito Route Start Time Stop Time Status Last Admin Dose Admin Acetaminophen 650 mg Q6HP PRN PO 10/28/24 21:15 11/07/24 21:31 650 MG Dexamethasone Sodium Phosphate 6 mg DAILY IV 10/29/24 10:00 11/06/24 09:10 6 MG Albuterol 90 mcg Q4HR IN 10/29/24 10:00 Cancel Patient Own Medication 1 BID PO 10/29/24 22:00 11/07/24 21:31 1 Enoxaparin Sodium 40 mg DAILY SC 10/30/24 10:00 11/07/24 11:01 40 MG Atorvastatin Calcium 20 mg HS PO 10/31/24 22:00 11/07/24 21:31 20 MG Guaifenesin 200 mg Q6HP PRN PO 11/01/24 09:45 11/05/24 23:25 200 MG Levothyroxine Sodium 125 mcg QAM@0600 PO 11/02/24 06:00 11/07/24 06:08 125 MCG Levalbuterol HCl 1.25 mg Q6HR NEB 11/03/24 08:15 11/07/24 19:22 1.25 MG Ipratropium [place] 0.5 mg Q6HWA NEB 11/03/24 08:15 11/07/24 19:22 0.5 MG Docusate Sodium 100 mg BID PO 11/05/24 10:00 11/07/24 21:32 100 MG Doxycycline Monohydrate 100 mg Q12HR PO 11/05/24 22:00 11/07/24 21:31 100 MG Meropenem 250 ml @ 83.3 mls/hr Q8HR IV 11/06/24 06:15 11/07/24 21:31 83.3 MLS/HR objective Gen.: Patient lying in bed in no apparent distress. On BiPAP Head: Normocephalic, atraumatic. Eyes: EOMI/PERRLA. Ears: Normal hearing. Normal anatomy. Neck/trachea: Trachea midline, supple. Nose: Normal external anatomy. Mouth: Moist mucous membranes. Chest: Decreased air entry bilaterally. No wheezing or rhonchi. Cardiovascular: Positive S1, positive S2. Regular rate and rhythm. Abdomen: Positive bowel sounds in all 4 quadrants. Soft, non-tender, non- distended. : Deferred. Rectal: Deferred. Skin: Warm, dry. Intact. Extremities: 2+ radial pulses bilaterally. No lower extremity edema. Neuro: Awake, alert, oriented x3. No gross motor or sensory deficits. Cranial nerves II through XII intact. Gait not assessed. laboratory and microbiology Laboratory Tests 11/07/24 07:56 Test 11/07/24 07:56 Range/Units Serum Glucose 109 H 74-106 mg/dL Assessment/Plan Impression: Acute hypoxic respiratory failure Dependence on supplemental oxygen Atelectasis Leukocytosis COVID-19 Obesity, BMI 32 Events: Increased O2 requirements Currently started on BiPAP BiPAP with IPAP 12, EPAP 5, FiO2 50% ABG reviewed, notable for alkalemia Head of bed elevation Aspiration precautions Continue steroids Continue antibiotics Antitussive PRN Incentive spirometry WBC trending down to 15 K Lovenox for DVT prophylaxis. Labs and imaging reviewed. Rest of plan as noted below. Plan: BiPAP with IPAP 12, EPAP 5, FiO2 50% Titrate to keep O2 sats above 92%. Continue antibiotics Completed Remdesivir course Complete steroid course Incentive spirometry Monitor WBC Blood cultures, no growth after 5 days Monitor renal function. Monitor electrolytes. Supplement as necessary. Monitor ins and outs. Diet and lifestyle modifications for weight reduction Obesity - complicates all care DVT prophylaxis. Prognosis: Poor given patient's multiple co-morbidities. Rest of plan per hospitalist and other consultants. Thank you Dr. Wood for allowing me to participate in this patient's care. Further recommendations will depend on the patient's clinical course. Please do not hesitate to contact me if you have any questions or concerns. This medical document was created using an electronic medical record system with [employer] dictation system. Although these documentations are being carefully reviewed, there may still be some phonetic and typographical changes. The errors are purely typographical, due to imperfection on the software program, and do not reflect any compromise in the patient's medical care. Dietary Evaluation Review Comments: 1) Promote good PO intake 2) Continue plan of care Expected Outcomes/Goals: 1) appetite and labs to improve 2) f/u in 5 days Plan discussed with: Patient, Other (RN) LESTER KING MD Nov 07, 2024 22:40
[2024-11-08] VITALS (19 sets, daily range): BP systolic 95–117; BP diastolic 63–74; PULSE 71–111; RESP 16–24; TEMP 97.9–99.1; O2SAT 90–96
[2024-11-08 07:07] LABS: Chloride 104 mmol/L (98-107); Potassium 4.1 mmol/L (3.5-5.1)
[2024-11-08 07:08] LABS: Anion Gap 8 (5-15); Calcium 9.8 mg/dL (8.7-10.4); Carbon Dioxide 22 mmol/L (20-31)
[2024-11-08 07:13] LABS: BUN/Creatinine Ratio 24.5 (10.0-20.0)
[2024-11-08 07:20] LABS: Hematocrit 45.4 % (41.0-53.0); Hemoglobin 14.7 g/dL (13.5-17.5); Mean Corpuscular Hemoglobin 29.8 pg (28.0-32.0); Mean Corpuscular Hgb Conc. 32.4 g/dL (32.0-36.0); Mean Corpuscular Volume 91.8 fL (80.0-100.0); Platelet Count (auto) 181 10^3/uL (140-450); Red Blood Cells 4.95 10^6/uL (4.5-5.90); Red Cell Distribution Width 14.3 % (11.8-14.3); White Blood Cell 13.5 10^3/uL (4.4-10.8)
[2024-11-08 07:25] LABS: Band Neutrophils % (manual) 0; Basophils % (manual) 0 (0.0-2.0); Blast Cells 0; Eosinophils % (manual) 0 (0-7); Metamyelocytes % 0; Myelocytes % 0; Promyelocytes % 0; Reactive Lymphocytes 0
[2024-11-08 07:28] LABS: Blood Urea Nitrogen 23 mg/dL (9-23); Glucose 106 mg/dL (74-106); Sodium 134 mmol/L (136-145)
[2024-11-08 08:46] LABS: Lymphocytes % (manual) 19 (10.0-50.0); Monocytes % (manual) 3 (0-12); Platelet Estimate Adequate
[2024-11-08] MEDS: ACETAMINOPHEN 325 MG TAB PO SCH (10:15)
[2024-11-08] MEDS ORDERED: VANCOMYCIN PER PHARMACY 0 MG IV SCH (10:30)
[2024-11-08] MEDS: VANCOMYCIN 1GM/250ML KIT 250 ML IV SCH ×2 (11:15→16:14)
[2024-11-08 12:14] LABS: Base Excess -0.7 mmol/L (-2.0-3.0)
--- NOTE | 2024-11-08 12:16 | DVH ---
EXAM: XY CHEST XRAY 1 VIEW Indication: dyspnea ,worsening SOB Technique: Single frontal view of the chest was obtained Comparison: XY CHEST XRAY 1 VIEW on DOS: 11/07/24, XY CHEST XRAY 1 VIEW on DOS: 11/03/24, XY CHEST PORT ABLE on DOS: 10/28/24 FINDINGS: Lines and Tubes: None Lungs: Diffuse airspace opacities. Low lung volumes. Pleura: No effusion. No pneumothorax. Cardiomediastinal contours: Unremarkable Bones: No acute osseous abnormality. IMPRESSION: Low lung volumes with diffuse interstitial opacities, stable compared to prior exam.
[2024-11-08] MEDS: IPRATROPIUM BROM 0.5 MG/2.5ML INH SOL NEB SCH (12:22)
[2024-11-08] MEDS: LEVALBUTEROL HCL 1.25 MG/3 ML NEB NEB SCH (12:22)
[2024-11-08 12:31] LABS: Urine Bacteria None Seen /hpf (None Seen)
[2024-11-08 12:38] LABS: COVID19 ANTIGEN SOFIA FIA NEGATIVE (NEGATIVE); Rapid Influenza A Negative (Negative); Rapid Influenza B Negative (Negative)
[2024-11-08 12:44] LABS: Urine Blood 1+ /uL (Negative); Urine Clarity Clear (Clear); Urine Color Yellow (Yellow); Urine Protein, UAD 1+ (Negative); Urine Specific Gravity 1.025 (1.001-1.035); Urine Squamous Epithelial Cell FEW /hpf (<5); Urine Urobilinogen 6 mg/dL (Negative); Urine WBC 2 /HPF (0-3); Urine pH 6.5 (5.0-9.0)
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
[2024-11-08] MEDS: FUROSEMIDE 40 MG/4 ML VIAL IV ONE (17:30)
[2024-11-08] MEDS: methylPREDNISolone SOD SUCC 125 MG/2 ML VL IV SCH (18:23)
[2024-11-08] MEDS: MAGNESIUM SULFATE 1GM/100ML 100 ML IV SCH (18:36)
--- NOTE | 2024-11-08 22:40 | DVHPN2 ---
Progress Note - Dictate Date Seen: Nov 08, 2024 Medical Necessity Reason Pt with a Central, PICC or Fol: No Subjective Patient seen and examined at bedside. Currently on high flow supplemental oxygen Overnight events reviewed. vital signs Vital Sign Date Time Temp Pulse Resp B/P (MAP) Pulse Ox O2 Delivery O2 Flow Rate FiO2 11/08/24 21:00 97.9 86 16 109/68 (82) 93 97.9 11/08/24 18:17 Hi-Flow NC 10 N/A Total Intake and Output 11/07/24 11/07/24 11/08/24 15:00 23:00 07:00 Intake Total 250 ml 300 ml 650 ml Output Total 400 ml Balance 250 ml -100 ml 650 ml medications Current Medications Medications Dose Ordered Sig/Lalito Route Start Time Stop Time Status Last Admin Dose Admin Albuterol 90 mcg Q4HR IN 10/29/24 10:00 Cancel Patient Own Medication 1 BID PO 10/29/24 22:00 11/08/24 21:14 1 Enoxaparin Sodium 40 mg DAILY SC 10/30/24 10:00 11/08/24 10:29 40 MG Atorvastatin Calcium 20 mg HS PO 10/31/24 22:00 11/08/24 21:15 20 MG Guaifenesin 200 mg Q6HP PRN PO 11/01/24 09:45 11/05/24 23:25 200 MG Levothyroxine Sodium 125 mcg QAM@0600 PO 11/02/24 06:00 11/08/24 05:54 125 MCG Docusate Sodium 100 mg BID PO 11/05/24 10:00 11/08/24 21:15 100 MG Doxycycline Monohydrate 100 mg Q12HR PO 11/05/24 22:00 11/08/24 21:15 100 MG Meropenem 250 ml @ 83.3 mls/hr Q8HR IV 11/06/24 06:15 11/08/24 21:13 83.3 MLS/HR Acetaminophen 650 mg Q6HP PO 11/08/24 10:15 11/08/24 18:23 650 MG Vancomycin HCl 0 ml @ 0 mls/hr UD IV 11/08/24 10:30 Ipratropium [place] 0.5 mg Q4HR NEB 11/08/24 14:00 11/08/24 22:26 0.5 MG Levalbuterol HCl 1.25 mg Q4HR NEB 11/08/24 14:00 11/08/24 22:26 1.25 MG Methylprednisolone Sodium Succinate 125 mg Q8HR IV 11/08/24 16:00 11/10/24 23:55 11/08/24 21:14 125 MG Vancomycin HCl 100 ml @ 100 mls/hr Q12H IV 11/09/24 04:00 objective Gen.: Patient lying in bed in no apparent distress. On supplemental oxygen Head: Normocephalic, atraumatic. Eyes: EOMI/PERRLA. Ears: Normal hearing. Normal anatomy. Neck/trachea: Trachea midline, supple. Nose: Normal external anatomy. Mouth: Moist mucous membranes. Chest: Decreased air entry bilaterally. No wheezing or rhonchi. Cardiovascular: Positive S1, positive S2. Regular rate and rhythm. Abdomen: Positive bowel sounds in all 4 quadrants. Soft, non-tender, non- distended. : Deferred. Rectal: Deferred. Skin: Warm, dry. Intact. Extremities: 2+ radial pulses bilaterally. No lower extremity edema. Neuro: Awake, alert, oriented x3. No gross motor or sensory deficits. Cranial nerves II through XII intact. Gait not assessed. laboratory and microbiology Laboratory Tests 11/08/24 06:03 Test 11/08/24 06:03 Range/Units Serum Glucose 106 74-106 mg/dL Assessment/Plan Impression: Acute hypoxic respiratory failure Dependence on supplemental oxygen Atelectasis Leukocytosis COVID-19 Obesity, BMI 32 Events: Increasing O2 requirements On high flow oxygen at flow rate 12 LPM Taper O2 as tolerated Obtain STAT ABG and chest x-ray Head of bed elevation Aspiration precautions Continue steroid course Stop Decadron, start Solu-Medrol Continue bronchodilators Continue antibiotics Antitussive PRN Incentive spirometry WBC trending down to 13.5 K - possibly reactive d/t steroids. Sputum cultures show normal oropharyngeal marco including yeast. Lovenox for DVT prophylaxis. Labs and imaging reviewed. Rest of plan as noted below. Plan: Continue high flow supplemental O2 Taper down as tolerated Titrate to keep O2 sats above 92%. Continue antibiotics Completed Remdesivir course Complete steroid course Incentive spirometry Monitor WBC Blood cultures, no growth after 5 days Monitor renal function. Monitor electrolytes. Supplement as necessary. Monitor ins and outs. Diet and lifestyle modifications for weight reduction Obesity - complicates all care DVT prophylaxis. Prognosis: Guarded given patient's multiple co-morbidities. Rest of plan per hospitalist and other consultants. Thank you Dr. Wood for allowing me to participate in this patient's care. Further recommendations will depend on the patient's clinical course. Please do not hesitate to contact me if you have any questions or concerns. This medical document was created using an electronic medical record system with [employer] dictation system. Although these documentations are being carefully reviewed, there may still be some phonetic and typographical changes. The errors are purely typographical, due to imperfection on the software program, and do not reflect any compromise in the patient's medical care. Dietary Evaluation Review Comments: 1) Promote good PO intake 2) Continue plan of care Expected Outcomes/Goals: 1) appetite and labs to improve 2) f/u in 5 days Plan discussed with: Patient, Other (LINDY Manriquez) LESTER KING MD Nov 08, 2024 22:40
[2024-11-09] VITALS (58 sets, daily range): BP systolic 101–128; BP diastolic 54–95; PULSE 67–98; RESP 14–30; TEMP 97.3–97.9; O2SAT 90–100
[2024-11-09] MEDS: VANCOMYCIN 750MG KIT 100 ML IV SCH (03:38)
[2024-11-09 06:43] LABS: Basophils # (auto) 0 10 ^3/uL (0-0.2); Basophils % (auto) 0.1 % (0.0-2.0); Eosinophils # (auto) 0 10 ^3/uL (0-0.8); Hematocrit 41.2 % (41.0-53.0); Hemoglobin 13.7 g/dL (13.5-17.5); Lymphocytes # (auto) 2.2 10 ^3/uL (0.4-5.4); Lymphocytes % (auto) 17.5 % (10.0-50.0); Mean Corpuscular Hemoglobin 30.3 pg (28.0-32.0); Mean Corpuscular Hgb Conc. 33.2 g/dL (32.0-36.0); Mean Corpuscular Volume 91.3 fL (80.0-100.0); Monocytes # (auto) 0.2 10 ^3/uL (0-1.3); Monocytes % (auto) 1.7 % (0.0-12.0); Neutrophils # (auto) 10.1 10 ^3/uL (1.6-8.6); Neutrophils % (auto) 80.7 % (37.0-80.0); Platelet Count (auto) 176 10^3/uL (140-450); Red Blood Cells 4.51 10^6/uL (4.5-5.90); Red Cell Distribution Width 13.5 % (11.8-14.3); White Blood Cell 12.5 10^3/uL (4.4-10.8)
[2024-11-09 07:21] LABS: Albumin 3.4 g/dL (3.2-4.8); Alkaline Phosphatase 67 U/L (46-116); Anion Gap 11 (5-15); Aspartate Aminotransferase 25 U/L (13-40); BUN/Creatinine Ratio 34.2 (10.0-20.0); Bilirubin, Total 0.7 mg/dL (0.2-1.0); Calcium 9.5 mg/dL (8.7-10.4); Chloride 105 mmol/L (98-107); Potassium 3.8 mmol/L (3.5-5.1)
[2024-11-09 07:26] LABS: Blood Urea Nitrogen 27 mg/dL (9-23); Carbon Dioxide 20 mmol/L (20-31); Glucose 210 mg/dL (74-106); Sodium 136 mmol/L (136-145)
[2024-11-09 07:27] LABS: Alanine Aminotransferase 53 U/L (7-40); Magnesium 2.8 mg/dL (1.6-2.6); Total Protein 5.2 g/dL (5.7-8.2)
[2024-11-09 09:48] LABS: Base Excess -3.1 mmol/L (-2.0-3.0)
[2024-11-09] MEDS: LACTULOSE 20Gm/30ML SOLN PO SCH (10:00)
[2024-11-09] MEDS: FUROSEMIDE 20 MG/2 ML VIAL IV ONE (10:15)
--- NOTE | 2024-11-09 10:55 | DVH ---
CHEST RADIOGRAPH Indication: f/u Technique: Single frontal view of the chest was obtained Comparison: XY CHEST XRAY 1 VIEW on DOS: 11/08/24, XY CHEST XRAY 1 VIEW on DOS: 11/07/24, XY CHEST XRAY 1 VIEW on DOS: 11/03/24, XY CHEST PORTABLE on DOS: 10/28/24, XY CHEST XRAY 1 VIEW on DOS: 11/08/24 FINDINGS: Lines and Tubes: None Lungs: Diffuse airspace opacities. Low lung volumes. Pleura: No effusion. No pneumothorax. Cardiomediastinal contours: Unremarkable Bones: No acute osseous abnormality. IMPRESSION: Low lung volumes with diffuse interstitial opacities, stable compared to prior exam.
[2024-11-09] MEDS: IOHEXOL 350 MG/ML 100ML IJ ONE (12:26)
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
[2024-11-09] MEDS: FLUCONAZOLE 200MG/100ML 100 ML IV SCH (17:14)
--- NOTE | 2024-11-09 23:05 | DVHPN2 ---
Progress Note - Dictate Date Seen: Nov 09, 2024 Medical Necessity Reason Pt with a Central, PICC or Fol: No Subjective Patient seen and examined at bedside. Currently on high flow supplemental oxygen Overnight events reviewed. vital signs Vital Sign Date Time Temp Pulse Resp B/P (MAP) Pulse Ox O2 Delivery O2 Flow Rate FiO2 11/09/24 22:45 73 24 118/69 (85) 97 11/09/24 22:11 45.0 35 11/09/24 22:00 Hi-Flow Heated NC+ 11/09/24 20:01 97.3 97.3 Total Intake and Output 11/08/24 11/08/24 11/09/24 15:00 23:00 07:00 Intake Total 750 ml 500 ml Output Total 200 ml 200 ml Balance 550 ml 300 ml medications Current Medications Medications Dose Ordered Sig/Lalito Route Start Time Stop Time Status Last Admin Dose Admin Albuterol 90 mcg Q4HR IN 10/29/24 10:00 Cancel Patient Own Medication 1 BID PO 10/29/24 22:00 11/09/24 21:39 1 Enoxaparin Sodium 40 mg DAILY SC 10/30/24 10:00 11/09/24 09:39 40 MG Atorvastatin Calcium 20 mg HS PO 10/31/24 22:00 11/09/24 21:38 20 MG Guaifenesin 200 mg Q6HP PRN PO 11/01/24 09:45 11/05/24 23:25 200 MG Levothyroxine Sodium 125 mcg QAM@0600 PO 11/02/24 06:00 11/09/24 06:09 125 MCG Docusate Sodium 100 mg BID PO 11/05/24 10:00 11/09/24 09:39 100 MG Doxycycline Monohydrate 100 mg Q12HR PO 11/05/24 22:00 11/09/24 21:39 100 MG Meropenem 250 ml @ 83.3 mls/hr Q8HR IV 11/06/24 06:15 11/09/24 21:38 83.3 MLS/HR Acetaminophen 650 mg Q6HP PO 11/08/24 10:15 11/09/24 11:38 650 MG Vancomycin HCl 0 ml @ 0 mls/hr UD IV 11/08/24 10:30 Ipratropium [place] 0.5 mg Q4HR NEB 11/08/24 14:00 11/09/24 22:11 0.5 MG Levalbuterol HCl 1.25 mg Q4HR NEB 11/08/24 14:00 11/09/24 22:11 1.25 MG Methylprednisolone Sodium Succinate 125 mg Q8HR IV 11/08/24 16:00 11/10/24 23:55 11/09/24 21:38 125 MG Vancomycin HCl 100 ml @ 100 mls/hr Q12H IV 11/09/24 04:00 11/09/24 16:00 100 MLS/HR Lactulose 30 ml DAILY PO 11/09/24 10:00 objective Gen.: Patient lying in bed in no apparent distress. On supplemental oxygen Head: Normocephalic, atraumatic. Eyes: EOMI/PERRLA. Ears: Normal hearing. Normal anatomy. Neck/trachea: Trachea midline, supple. Nose: Normal external anatomy. Mouth: Moist mucous membranes. Chest: Decreased air entry bilaterally. No wheezing or rhonchi. Cardiovascular: Positive S1, positive S2. Regular rate and rhythm. Abdomen: Positive bowel sounds in all 4 quadrants. Soft, non-tender, non- distended. : Deferred. Rectal: Deferred. Skin: Warm, dry. Intact. Extremities: 2+ radial pulses bilaterally. No lower extremity edema. Neuro: Awake, alert, oriented x3. No gross motor or sensory deficits. Cranial nerves II through XII intact. Gait not assessed. laboratory and microbiology Laboratory Tests 11/09/24 06:04 Test 11/09/24 06:04 Range/Units Serum Glucose 210 #H 74-106 mg/dL Assessment/Plan Impression: Acute hypoxic respiratory failure Dependence on supplemental oxygen Atelectasis Leukocytosis COVID-19 Obesity, BMI 32 Events: Increasing O2 requirements Remains on high flow oxygen at flow rate 55 LPM, FiO2 75% Taper O2 as tolerated Patient appears more comfortable. Head of bed elevation Aspiration precautions Continue steroid course - Solu-Medrol Continue bronchodilators Continue antibiotics Antitussive PRN Incentive spirometry WBC trending down to 12.5 K Sputum cultures show normal oropharyngeal marco including yeast. Lovenox for DVT prophylaxis. Diurese as tolerated w/ Lasix Monitor renal function. Monitor electrolytes. Supplement as necessary. Monitor respiratory status closely Labs and imaging reviewed. Rest of plan as noted below. Plan: Continue high flow supplemental O2 Taper down as tolerated Titrate to keep O2 sats above 92%. Continue antibiotics Completed Remdesivir course Complete steroid course Incentive spirometry Monitor WBC Blood cultures, no growth after 5 days Monitor renal function. Monitor electrolytes. Supplement as necessary. Monitor ins and outs. Diet and lifestyle modifications for weight reduction Obesity - complicates all care DVT prophylaxis. Prognosis: Guarded given patient's multiple co-morbidities. Condition: Critical Rest of plan per hospitalist and other consultants. A total of 35 minutes of critical care time was spent reviewing the patient record, examining the patient, making a diagnostic and therapeutic plan, discussing this plan with the medical personnel, following up on diagnostic studies and following the patient for clinical stability excluding any and all procedures. At least 50% of this time was spent in direct, [id number] contact. Thank you Dr. Wood for allowing me to participate in this patient's care. Further recommendations will depend on the patient's clinical course. Please do not hesitate to contact me if you have any questions or concerns. This medical document was created using an electronic medical record system with [employer] dictation system. Although these documentations are being carefully reviewed, there may still be some phonetic and typographical changes. The errors are purely typographical, due to imperfection on the software program, and do not reflect any compromise in the patient's medical care. Dietary Evaluation Review Comments: 1) Promote good PO intake 2) Continue plan of care Expected Outcomes/Goals: 1) appetite and labs to improve 2) f/u in 5 days Plan discussed with: Patient, Other (LINDY Manriquez/Nina) Critical Care Time(min): 35 LESTER KING MD Nov 09, 2024 23:05
[2024-11-10] VITALS (42 sets, daily range): BP systolic 103–128; BP diastolic 52–78; PULSE 71–102; RESP 12–36; TEMP 97.7–98.3; O2SAT 93–100
[2024-11-10 04:08] LABS: Hematocrit 40.9 % (41.0-53.0); Hemoglobin 13.8 g/dL (13.5-17.5); Mean Corpuscular Hemoglobin 30.7 pg (28.0-32.0); Mean Corpuscular Hgb Conc. 33.8 g/dL (32.0-36.0); Mean Corpuscular Volume 90.8 fL (80.0-100.0); Platelet Count (auto) 186 10^3/uL (140-450); Red Cell Distribution Width 13.9 % (11.8-14.3); White Blood Cell 19.9 10^3/uL (4.4-10.8)
[2024-11-10 04:26] LABS: Alkaline Phosphatase 92 U/L (46-116); Anion Gap 9 (5-15); BUN/Creatinine Ratio 40.8 (10.0-20.0); Calcium 10.1 mg/dL (8.7-10.4); Carbon Dioxide 22 mmol/L (20-31); Potassium 3.9 mmol/L (3.5-5.1); Sodium 139 mmol/L (136-145)
[2024-11-10 04:27] LABS: Albumin 3.4 g/dL (3.2-4.8); Aspartate Aminotransferase 22 U/L (13-40); Bilirubin, Total 0.7 mg/dL (0.2-1.0)
[2024-11-10 04:32] LABS: Band Neutrophils % (manual) 0; Basophils % (manual) 0 (0.0-2.0); Blast Cells 0; Eosinophils % (manual) 0 (0-7); Metamyelocytes % 0; Myelocytes % 0; Promyelocytes % 0; Reactive Lymphocytes 0
[2024-11-10 04:34] LABS: Alanine Aminotransferase 46 U/L (7-40); Blood Urea Nitrogen 29 mg/dL (9-23); Chloride 108 mmol/L (98-107); Glucose 173 mg/dL (74-106); Magnesium 2.7 mg/dL (1.6-2.6); Total Protein 5.6 g/dL (5.7-8.2)
[2024-11-10 05:01] LABS: Lymphocytes % (manual) 16 (10.0-50.0); Monocytes % (manual) 3 (0-12)
[2024-11-10 05:02] LABS: Large Platelets FEW; Platelet Estimate Adequate
--- NOTE | 2024-11-10 05:38 | DVH ---
CHEST RADIOGRAPH Indication: Follow up Technique: Single frontal view of the chest was obtained Comparison: XY CHEST XRAY 1 VIEW on DOS: 11/09/24, XY CHEST XRAY 1 VIEW on DOS: 11/08/24, XY CHEST XRAY 1 VIEW on DOS: 11/07/24 IMPRESSION: Patchy interstitial and alveolar airspace opacities appear similar to prior examination. No sizable e ffusion or pneumothorax. Stable appearance of multiple old right rib fractures.
[2024-11-10 06:24] LABS: Base Excess -2.2 mmol/L (-2.0-3.0)
[2024-11-10] MEDS: PANTOPRAZOLE 40 MG/10 ML VIAL INJ IV SCH (09:44)
[2024-11-10] MEDS: SUCRALFATE 1 GM/10 ML ORAL SUSP GT SCH (09:44)
[2024-11-10] MEDS: VANCOMYCIN 750MG KIT 100 ML IV SCH (11:57)
[2024-11-10] MEDS: FUROSEMIDE 20 MG/2 ML VIAL IV ONE ×2 (15:45→17:49)
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
--- NOTE | 2024-11-10 23:37 | DVHPN2 ---
Progress Note - Dictate Date Seen: Nov 10, 2024 Medical Necessity Reason Pt with a Central, PICC or Fol: No Subjective Patient seen and examined at bedside. Remains on supplemental oxygen Overnight events reviewed. vital signs Vital Sign Date Time Temp Pulse Resp B/P (MAP) Pulse Ox O2 Delivery O2 Flow Rate FiO2 11/10/24 23:11 88 23 128/74 97 5.0 11/10/24 22:00 Oxymizer N/A 11/10/24 20:00 98.3 98.3 Total Intake and Output 11/09/24 11/09/24 11/10/24 15:00 23:00 07:00 Intake Total 166.6 ml 583.4 ml 833.3 ml Output Total 1325 ml 700 ml Balance 166.6 ml -741.6 ml 133.3 ml medications Current Medications Medications Dose Ordered Sig/Lalito Route Start Time Stop Time Status Last Admin Dose Admin Albuterol 90 mcg Q4HR IN 10/29/24 10:00 Cancel Patient Own Medication 1 BID PO 10/29/24 22:00 11/10/24 21:37 1 Enoxaparin Sodium 40 mg DAILY SC 10/30/24 10:00 11/10/24 08:01 40 MG Atorvastatin Calcium 20 mg HS PO 10/31/24 22:00 11/10/24 21:37 20 MG Guaifenesin 200 mg Q6HP PRN PO 11/01/24 09:45 11/10/24 20:09 200 MG Levothyroxine Sodium 125 mcg QAM@0600 PO 11/02/24 06:00 11/10/24 06:21 125 MCG Docusate Sodium 100 mg BID PO 11/05/24 10:00 11/10/24 08:01 100 MG Doxycycline Monohydrate 100 mg Q12HR PO 11/05/24 22:00 11/10/24 21:36 100 MG Acetaminophen 650 mg Q6HP PO 11/08/24 10:15 11/10/24 10:35 650 MG Vancomycin HCl 0 ml @ 0 mls/hr UD IV 11/08/24 10:30 Ipratropium [place] 0.5 mg Q4HR NEB 11/08/24 14:00 11/10/24 22:24 0.5 MG Levalbuterol HCl 1.25 mg Q4HR NEB 11/08/24 14:00 11/10/24 22:24 1.25 MG Methylprednisolone Sodium Succinate 125 mg Q8HR IV 11/08/24 16:00 11/10/24 23:55 11/10/24 21:36 125 MG Lactulose 30 ml DAILY PO 11/09/24 10:00 11/10/24 08:01 30 ML Pantoprazole Sodium 40 mg DAILY IV 11/10/24 10:00 11/10/24 09:44 40 MG Sucralfate 1 gm TID@0600,1130,2200 GT 11/10/24 11:30 11/10/24 21:42 1 GM Vancomycin HCl 100 ml @ 100 mls/hr Q8H IV 11/10/24 12:00 11/10/24 19:44 100 MLS/HR Meropenem 250 ml @ 83.3 mls/hr Q8HR IV 11/11/24 07:00 objective Gen.: Patient lying in bed in no apparent distress. On supplemental oxygen Head: Normocephalic, atraumatic. Eyes: EOMI/PERRLA. Ears: Normal hearing. Normal anatomy. Neck/trachea: Trachea midline, supple. Nose: Normal external anatomy. Mouth: Moist mucous membranes. Chest: Decreased air entry bilaterally. No wheezing or rhonchi. Cardiovascular: Positive S1, positive S2. Regular rate and rhythm. Abdomen: Positive bowel sounds in all 4 quadrants. Soft, non-tender, non- distended. : Deferred. Rectal: Deferred. Skin: Warm, dry. Intact. Extremities: 2+ radial pulses bilaterally. No lower extremity edema. Neuro: Awake, alert, oriented x3. No gross motor or sensory deficits. Cranial nerves II through XII intact. Gait not assessed. laboratory and microbiology Laboratory Tests 11/10/24 03:39 Test 11/10/24 03:39 Range/Units Serum Glucose 173 H 74-106 mg/dL Assessment/Plan Impression: Acute hypoxic respiratory failure Dependence on supplemental oxygen Atelectasis Leukocytosis COVID-19 Obesity, BMI 32 Events: Improving O2 requirements Currently on 8 LPM --> 6 LPM Oxymizer Taper O2 as tolerated Monitor respiratory status closely Head of bed elevation Aspiration precautions Continue steroid course - Solu-Medrol Continue bronchodilators Continue antibiotics Incentive spirometry Lasix 20 mg IVP for diuresis WBC trending up to 19.9 K Sputum cultures show normal oropharyngeal marco including yeast. Electrolytes at goal Lovenox for DVT prophylaxis. Labs and imaging reviewed. Rest of plan as noted below. Plan: Continue supplemental O2 Titrate to keep O2 sats above 92%. Continue antibiotics Completed Remdesivir course Complete steroid course Incentive spirometry Monitor WBC Blood cultures, no growth after 5 days Monitor renal function. Monitor electrolytes. Supplement as necessary. Monitor ins and outs. Diet and lifestyle modifications for weight reduction Obesity - complicates all care DVT prophylaxis. Prognosis: Guarded given patient's multiple co-morbidities. Condition: Critical Rest of plan per hospitalist and other consultants. A total of 35 minutes of critical care time was spent reviewing the patient record, examining the patient, making a diagnostic and therapeutic plan, discussing this plan with the medical personnel, following up on diagnostic studies and following the patient for clinical stability excluding any and all procedures. At least 50% of this time was spent in direct, [id number] contact. Thank you Dr. Wood for allowing me to participate in this patient's care. Further recommendations will depend on the patient's clinical course. Please do not hesitate to contact me if you have any questions or concerns. This medical document was created using an electronic medical record system with [employer] dictation system. Although these documentations are being carefully reviewed, there may still be some phonetic and typographical changes. The errors are purely typographical, due to imperfection on the software program, and do not reflect any compromise in the patient's medical care. Dietary Evaluation Review Comments: 1) Promote good PO intake 2) Continue plan of care Expected Outcomes/Goals: 1) appetite and labs to improve 2) f/u in 5 days Plan discussed with: Other (LINDY Casarez) Critical Care Time(min): 35 LESTER KING MD Nov 10, 2024 23:37
[2024-11-11] VITALS (40 sets, daily range): BP systolic 97–135; BP diastolic 61–79; PULSE 80–107; RESP 14–33; TEMP 97.8–98.5; O2SAT 91–100
[2024-11-11 04:10] LABS: Basophils # (auto) 0 10 ^3/uL (0-0.2); Eosinophils # (auto) 0 10 ^3/uL (0-0.8); Hematocrit 40.5 % (41.0-53.0); Hemoglobin 13.4 g/dL (13.5-17.5); Lymphocytes # (auto) 1.5 10 ^3/uL (0.4-5.4); Lymphocytes % (auto) 11.1 % (10.0-50.0); Mean Corpuscular Hemoglobin 30.2 pg (28.0-32.0); Mean Corpuscular Hgb Conc. 33.1 g/dL (32.0-36.0); Mean Corpuscular Volume 91.1 fL (80.0-100.0); Monocytes # (auto) 0.4 10 ^3/uL (0-1.3); Monocytes % (auto) 2.5 % (0.0-12.0); Neutrophils % (auto) 86.4 % (37.0-80.0); Platelet Count (auto) 171 10^3/uL (140-450); Red Blood Cells 4.45 10^6/uL (4.5-5.90); Red Cell Distribution Width 13.9 % (11.8-14.3); White Blood Cell 13.9 10^3/uL (4.4-10.8)
[2024-11-11 04:28] LABS: Alkaline Phosphatase 81 U/L (46-116); Anion Gap 11 (5-15); Aspartate Aminotransferase 23 U/L (13-40); BUN/Creatinine Ratio 38.1 (10.0-20.0); Calcium 9.8 mg/dL (8.7-10.4); Carbon Dioxide 23 mmol/L (20-31); Chloride 106 mmol/L (98-107); Potassium 3.9 mmol/L (3.5-5.1); Sodium 140 mmol/L (136-145)
[2024-11-11 04:29] LABS: Albumin 3.4 g/dL (3.2-4.8); Bilirubin, Total 0.8 mg/dL (0.2-1.0)
[2024-11-11 04:32] LABS: Alanine Aminotransferase 45 U/L (7-40); Blood Urea Nitrogen 32 mg/dL (9-23); Glucose 186 mg/dL (74-106); Total Protein 5.5 g/dL (5.7-8.2)
[2024-11-11] MEDS ORDERED: MEROPENEM 2GM/ 250ML 250 ML IV SCH (07:00)
[2024-11-11] MEDS: LATANOPROST 0.005 % OPTH(EYE) SOL 2.5ML EACHEYE SCH ×2 (11:25→22:54)
--- NOTE | 2024-11-11 11:49 | MEDREC ---
[facility] Intervention Section I [facility] Intervention: Duplication of therapy (7 DAYS ON DOXYCYCLINE - PLEASE CONSIDER D/C DOXYCYCLINE IF CLINICALLY APPROPRIATE) BABS BUENROSTRO PHARMACIST Nov 11, 2024 11:49
[2024-11-11] MEDS: methylPREDNISolone SOD SUCC 40 MG/ML VL IV SCH (12:12)
[2024-11-11] MEDS: MEROPENEM 1GM IVPB 50 ML IV SCH (15:03)
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
--- NOTE | 2024-11-11 19:29 | DVHPN2 ---
Progress Note - Dictate Date Seen: Nov 11, 2024 Medical Necessity Reason Pt with a Central, PICC or Fol: No Subjective Patient seen and examined at bedside. Remains on supplemental oxygen Overnight events reviewed. vital signs Vital Sign Date Time Temp Pulse Resp B/P (MAP) Pulse Ox O2 Delivery O2 Flow Rate FiO2 11/11/24 18:15 98.3 103 19 131/79 (96) 92 98.3 11/11/24 18:00 Oxymizer 4 N/A Total Intake and Output 11/10/24 11/10/24 11/11/24 15:00 23:00 07:00 Intake Total 433.2 ml 683.3 ml 700 ml Output Total 1600 ml 710 ml Balance 433.2 ml -916.7 ml -10 ml medications Current Medications Medications Dose Ordered Sig/Lalito Route Start Time Stop Time Status Last Admin Dose Admin Albuterol 90 mcg Q4HR IN 10/29/24 10:00 Cancel Patient Own Medication 1 BID PO 10/29/24 22:00 11/11/24 11:00 1 Enoxaparin Sodium 40 mg DAILY SC 10/30/24 10:00 11/11/24 10:59 40 MG Atorvastatin Calcium 20 mg HS PO 10/31/24 22:00 11/10/24 21:37 20 MG Guaifenesin 200 mg Q6HP PRN PO 11/01/24 09:45 11/11/24 04:37 200 MG Levothyroxine Sodium 125 mcg QAM@0600 PO 11/02/24 06:00 11/11/24 06:28 125 MCG Docusate Sodium 100 mg BID PO 11/05/24 10:00 11/10/24 08:01 100 MG Doxycycline Monohydrate 100 mg Q12HR PO 11/05/24 22:00 11/11/24 11:00 100 MG Acetaminophen 650 mg Q6HP PO 11/08/24 10:15 11/11/24 13:14 650 MG Vancomycin HCl 0 ml @ 0 mls/hr UD IV 11/08/24 10:30 Ipratropium [place] 0.5 mg Q4HR NEB 11/08/24 14:00 11/11/24 14:42 0.5 MG Levalbuterol HCl 1.25 mg Q4HR NEB 11/08/24 14:00 11/11/24 14:41 1.25 MG Lactulose 30 ml DAILY PO 11/09/24 10:00 11/10/24 08:01 30 ML Pantoprazole Sodium 40 mg DAILY IV 11/10/24 10:00 11/11/24 11:00 40 MG Sucralfate 1 gm TID@0600,1130,2200 GT 11/10/24 11:30 11/11/24 12:12 1 GM Vancomycin HCl 100 ml @ 100 mls/hr Q8H IV 11/10/24 12:00 11/11/24 12:59 100 MLS/HR Meropenem 50 ml @ 17 mls/hr Q8HR IV 11/11/24 14:00 11/11/24 15:03 17 MLS/HR Methylprednisolone Sodium Succinate 40 mg Q6HR IV 11/11/24 12:00 11/13/24 11:59 11/11/24 12:12 40 MG Methylprednisolone Sodium Succinate 40 mg Q8HR IV 11/13/24 14:00 11/15/24 13:59 Methylprednisolone Sodium Succinate 40 mg BID IV 11/15/24 10:00 11/17/24 09:59 Prednisone 40 mg BID PO 11/17/24 10:00 Latanoprost 1 drop DAILY EACHEYE 11/11/24 22:00 objective Gen.: Patient lying in bed in no apparent distress. On supplemental oxygen Head: Normocephalic, atraumatic. Eyes: EOMI/PERRLA. Ears: Normal hearing. Normal anatomy. Neck/trachea: Trachea midline, supple. Nose: Normal external anatomy. Mouth: Moist mucous membranes. Chest: Decreased air entry bilaterally. No wheezing or rhonchi. Cardiovascular: Positive S1, positive S2. Regular rate and rhythm. Abdomen: Positive bowel sounds in all 4 quadrants. Soft, non-tender, non- distended. : Deferred. Rectal: Deferred. Skin: Warm, dry. Intact. Extremities: 2+ radial pulses bilaterally. No lower extremity edema. Neuro: Awake, alert, oriented x3. No gross motor or sensory deficits. Cranial nerves II through XII intact. Gait not assessed. laboratory and microbiology Laboratory Tests 11/11/24 03:24 Test 11/11/24 03:24 Range/Units Serum Glucose 186 H 74-106 mg/dL Assessment/Plan Impression: Acute hypoxic respiratory failure Dependence on supplemental oxygen Atelectasis Leukocytosis COVID-19 Obesity, BMI 32 Events: Improved O2 requirements Currently on 6 LPM --> 4 LPM Oxymizer Continue to taper O2 as tolerated Monitor respiratory status closely Head of bed elevation Aspiration precautions Stress dose steroids - taper frequency every 2 days Continue bronchodilators Continue antibiotics Incentive spirometry WBC trending down to 13.9 K Sputum cultures show normal oropharyngeal marco including yeast. Electrolytes at goal Lovenox for DVT prophylaxis. Labs and imaging reviewed. Rest of plan as noted below. Plan: Continue supplemental O2 Titrate to keep O2 sats above 92%. Continue antibiotics Completed Remdesivir course Complete steroid course Incentive spirometry Monitor WBC Blood cultures, no growth after 5 days Monitor renal function. Monitor electrolytes. Supplement as necessary. Monitor ins and outs. Diet and lifestyle modifications for weight reduction Obesity - complicates all care DVT prophylaxis. Prognosis: Guarded given patient's multiple co-morbidities. Condition: Critical Rest of plan per hospitalist and other consultants. A total of 35 minutes of critical care time was spent reviewing the patient record, examining the patient, making a diagnostic and therapeutic plan, discussing this plan with the medical personnel, following up on diagnostic studies and following the patient for clinical stability excluding any and all procedures. At least 50% of this time was spent in direct, [id number] contact. Thank you Dr. Wood for allowing me to participate in this patient's care. Further recommendations will depend on the patient's clinical course. Please do not hesitate to contact me if you have any questions or concerns. This medical document was created using an electronic medical record system with [email or web address] computerized dictation system. Although these documentations are being carefully reviewed, there may still be some phonetic and typographical changes. The errors are purely typographical, due to imperfection on the software program, and do not reflect any compromise in the patient's medical care. Dietary Evaluation Review Comments: 1) Promote good PO intake 2) Continue plan of care Expected Outcomes/Goals: 1) appetite and labs to improve 2) f/u in 5 days Plan discussed with: Other (LINDY Rivers) Critical Care Time(min): 35 LESTER KING MD Nov 11, 2024 19:29
[2024-11-12] VITALS (22 sets, daily range): BP systolic 114–135; BP diastolic 60–78; PULSE 78–109; RESP 17–26; TEMP 97.5–98.3; O2SAT 90–98
[2024-11-12 06:14] LABS: Basophils # (auto) 0 10 ^3/uL (0-0.2); Eosinophils # (auto) 0 10 ^3/uL (0-0.8); Hematocrit 41.9 % (41.0-53.0); Hemoglobin 13.5 g/dL (13.5-17.5); Lymphocytes # (auto) 1.9 10 ^3/uL (0.4-5.4); Lymphocytes % (auto) 13.9 % (10.0-50.0); Mean Corpuscular Hemoglobin 29.6 pg (28.0-32.0); Mean Corpuscular Hgb Conc. 32.3 g/dL (32.0-36.0); Mean Corpuscular Volume 91.7 fL (80.0-100.0); Monocytes # (auto) 0.4 10 ^3/uL (0-1.3); Neutrophils # (auto) 11.5 10 ^3/uL (1.6-8.6); Neutrophils % (auto) 83.1 % (37.0-80.0); Platelet Count (auto) 161 10^3/uL (140-450); Red Blood Cells 4.57 10^6/uL (4.5-5.90); Red Cell Distribution Width 13.8 % (11.8-14.3); White Blood Cell 13.9 10^3/uL (4.4-10.8)
--- NOTE | 2024-11-12 13:33 | DVH ---
CHEST RADIOGRAPH Indication: f/u Technique: Single frontal view of the chest was obtained Comparison: XY CHEST XRAY 1 VIEW on DOS: 11/10/24, XY CHEST XRAY 1 VIEW on DOS: 11/09/24, XY CHEST XRAY 1 VIEW on DOS: 11/08/24, XY CHEST XRAY 1 VIEW on DOS: 11/07/24, XY CHEST XRAY 1 VIEW on DOS: 11/03/24, X Y CHEST XRAY 1 VIEW on DOS: 11/10/24 FINDINGS: Patchy interstitial and alveolar airspace opacities appear similar to prior examination. No sizable e ffusion or pneumothorax. Stable appearance of multiple old right rib fractures. IMPRESSION: No interval improvement. Right
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
--- NOTE | 2024-11-12 22:05 | DVHPN2 ---
Progress Note - Dictate Date Seen: Nov 12, 2024 Medical Necessity Reason Pt with a Central, PICC or Fol: No Subjective Patient seen and examined at bedside. Remains on supplemental oxygen Overnight events reviewed. vital signs Vital Sign Date Time Temp Pulse Resp B/P (MAP) Pulse Ox O2 Delivery O2 Flow Rate FiO2 11/12/24 21:00 97.5 85 17 124/60 (81) 96 97.5 11/12/24 18:56 Oxymizer 4 N/A Total Intake and Output 11/11/24 11/11/24 11/12/24 15:00 23:00 07:00 Intake Total 100 ml 50 ml 900 ml Output Total 550 ml 150 ml 500 ml Balance -450 ml -100 ml 400 ml medications Current Medications Medications Dose Ordered Sig/Lalito Route Start Time Stop Time Status Last Admin Dose Admin Albuterol 90 mcg Q4HR IN 10/29/24 10:00 Cancel Patient Own Medication 1 BID PO 10/29/24 22:00 11/12/24 09:28 1 Enoxaparin Sodium 40 mg DAILY SC 10/30/24 10:00 11/12/24 09:28 40 MG Atorvastatin Calcium 20 mg HS PO 10/31/24 22:00 11/11/24 22:48 20 MG Guaifenesin 200 mg Q6HP PRN PO 11/01/24 09:45 11/11/24 04:37 200 MG Levothyroxine Sodium 125 mcg QAM@0600 PO 11/02/24 06:00 11/12/24 04:55 125 MCG Docusate Sodium 100 mg BID PO 11/05/24 10:00 11/12/24 09:28 100 MG Doxycycline Monohydrate 100 mg Q12HR PO 11/05/24 22:00 11/12/24 09:37 100 MG Acetaminophen 650 mg Q6HP PO 11/08/24 10:15 11/12/24 18:25 650 MG Vancomycin HCl 0 ml @ 0 mls/hr UD IV 11/08/24 10:30 Ipratropium [place] 0.5 mg Q4HR NEB 11/08/24 14:00 11/12/24 21:52 0.5 MG Levalbuterol HCl 1.25 mg Q4HR NEB 11/08/24 14:00 11/12/24 21:52 1.25 MG Lactulose 30 ml DAILY PO 11/09/24 10:00 11/12/24 09:28 30 ML Pantoprazole Sodium 40 mg DAILY IV 11/10/24 10:00 11/12/24 09:27 40 MG Sucralfate 1 gm TID@0600,1130,2200 GT 11/10/24 11:30 11/12/24 18:25 1 GM Meropenem 50 ml @ 17 mls/hr Q8HR IV 11/11/24 14:00 11/12/24 14:00 17 MLS/HR Methylprednisolone Sodium Succinate 40 mg Q6HR IV 11/11/24 12:00 11/13/24 11:59 11/12/24 18:25 40 MG Methylprednisolone Sodium Succinate 40 mg Q8HR IV 11/13/24 14:00 11/15/24 13:59 Methylprednisolone Sodium Succinate 40 mg BID IV 11/15/24 10:00 11/17/24 09:59 Prednisone 40 mg BID PO 11/17/24 10:00 Latanoprost 1 drop DAILY EACHEYE 11/11/24 22:00 11/12/24 09:27 1 DROP Vancomycin HCl 100 ml @ 100 mls/hr Q8HR@0000,0800,1600 IV 11/13/24 00:00 objective Gen.: Patient lying in bed in no apparent distress. On supplemental oxygen Head: Normocephalic, atraumatic. Eyes: EOMI/PERRLA. Ears: Normal hearing. Normal anatomy. Neck/trachea: Trachea midline, supple. Nose: Normal external anatomy. Mouth: Moist mucous membranes. Chest: Decreased air entry bilaterally. No wheezing or rhonchi. Cardiovascular: Positive S1, positive S2. Regular rate and rhythm. Abdomen: Positive bowel sounds in all 4 quadrants. Soft, non-tender, non- distended. : Deferred. Rectal: Deferred. Skin: Warm, dry. Intact. Extremities: 2+ radial pulses bilaterally. No lower extremity edema. Neuro: Awake, alert, oriented x3. No gross motor or sensory deficits. Cranial nerves II through XII intact. Gait not assessed. laboratory and microbiology Laboratory Tests 11/12/24 05:12 11/11/24 03:24 Test 11/11/24 03:24 Range/Units Serum Glucose 186 H 74-106 mg/dL Assessment/Plan Impression: Acute hypoxic respiratory failure Dependence on supplemental oxygen Atelectasis Leukocytosis COVID-19 Obesity, BMI 32 Events: Improved O2 requirements Remains on 4 LPM Oxymizer Continue to taper O2 as tolerated Improving O2 requirements Chest x-ray reviewed; no acute changes. Patchy interstitial opacities. Head of bed elevation Aspiration precautions Continue IV steroids Continue bronchodilators Continue antibiotics Incentive spirometry WBC stable at 13.9 K Lovenox for DVT prophylaxis. Updated family (daughter) via phone. Labs and imaging reviewed. Rest of plan as noted below. Plan: Continue supplemental O2 Titrate to keep O2 sats above 92%. Continue antibiotics Completed Remdesivir course Complete steroid course Incentive spirometry Monitor WBC Blood cultures, no growth after 5 days Sputum cultures show normal oropharyngeal marco including yeast. Monitor renal function. Monitor electrolytes. Supplement as necessary. Monitor ins and outs. Diet and lifestyle modifications for weight reduction Obesity - complicates all care DVT prophylaxis. Prognosis: Guarded given patient's multiple co-morbidities. Rest of plan per hospitalist and other consultants. Thank you Dr. Wood for allowing me to participate in this patient's care. Further recommendations will depend on the patient's clinical course. Please do not hesitate to contact me if you have any questions or concerns. This medical document was created using an electronic medical record system with [employer] dictation system. Although these documentations are being carefully reviewed, there may still be some phonetic and typographical changes. The errors are purely typographical, due to imperfection on the software program, and do not reflect any compromise in the patient's medical care. Dietary Evaluation Review Comments: 1) Promote good PO intake 2) Continue plan of care Expected Outcomes/Goals: 1) appetite and labs to improve 2) f/u in 5 days Plan discussed with: Patient, Daughter, Other (LINDY Jones) LESTER KING MD Nov 12, 2024 22:05
[2024-11-13] VITALS (21 sets, daily range): BP systolic 101–146; BP diastolic 50–90; PULSE 73–110; RESP 16–24; TEMP 97.4–98.3; O2SAT 90–100
[2024-11-13] MEDS: VANCOMYCIN 750MG KIT 100 ML IV SCH ×2 (02:36→09:17)
[2024-11-13 06:00] LABS: Anion Gap 10 (5-15); Carbon Dioxide 21 mmol/L (20-31); Potassium 4.5 mmol/L (3.5-5.1); Sodium 138 mmol/L (136-145)
[2024-11-13 06:01] LABS: Calcium 10.2 mg/dL (8.7-10.4)
[2024-11-13 06:06] LABS: BUN/Creatinine Ratio 35.7 (10.0-20.0)
[2024-11-13 06:38] LABS: Blood Urea Nitrogen 30 mg/dL (9-23); Chloride 107 mmol/L (98-107); Glucose 208 mg/dL (74-106); Magnesium 2.7 mg/dL (1.6-2.6)
[2024-11-13] MEDS: SUCRALFATE 1 GM/10 ML ORAL SUSP PO SCH (09:15)
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
[2024-11-13] MEDS: FLUCONAZOLE 100 MG TAB PO ONE (14:00)
[2024-11-13] MEDS: cefTRIAXone 1GM/50ML D5W 50 ML IV ONE (14:00)
[2024-11-13] MEDS: methylPREDNISolone SOD SUCC 40 MG/ML VL IV SCH (15:08)
[2024-11-13] MEDS: FLUCONAZOLE 100 MG TAB PO SCH (21:25)
--- NOTE | 2024-11-13 22:03 | DVHPN2 ---
Progress Note - Dictate Date Seen: Nov 13, 2024 Medical Necessity Reason Pt with a Central, PICC or Fol: No Subjective Patient seen and examined at bedside. Remains on supplemental oxygen Overnight events reviewed. vital signs Vital Sign Date Time Temp Pulse Resp B/P (MAP) Pulse Ox O2 Delivery O2 Flow Rate FiO2 11/13/24 21:00 97.8 99 19 123/82 (96) 97 97.8 11/13/24 20:00 Oxymizer 4 N/A Total Intake and Output 11/12/24 11/12/24 11/13/24 15:00 23:00 07:00 Intake Total 600 ml 550 ml Output Total 925 ml 325 ml Balance -325 ml 225 ml medications Current Medications Medications Dose Ordered Sig/Lalito Route Start Time Stop Time Status Last Admin Dose Admin Albuterol 90 mcg Q4HR IN 10/29/24 10:00 Cancel Patient Own Medication 1 BID PO 10/29/24 22:00 11/13/24 21:26 1 Enoxaparin Sodium 40 mg DAILY SC 10/30/24 10:00 11/13/24 09:15 40 MG Atorvastatin Calcium 20 mg HS PO 10/31/24 22:00 11/13/24 21:25 20 MG Guaifenesin 200 mg Q6HP PRN PO 11/01/24 09:45 11/13/24 09:45 200 MG Levothyroxine Sodium 125 mcg QAM@0600 PO 11/02/24 06:00 11/13/24 07:06 125 MCG Docusate Sodium 100 mg BID PO 11/05/24 10:00 11/13/24 21:25 100 MG Doxycycline Monohydrate 100 mg Q12HR PO 11/05/24 22:00 11/13/24 21:25 100 MG Acetaminophen 650 mg Q6HP PO 11/08/24 10:15 11/13/24 15:08 650 MG Ipratropium [place] 0.5 mg Q4HR NEB 11/08/24 14:00 11/13/24 18:05 0.5 MG Levalbuterol HCl 1.25 mg Q4HR NEB 11/08/24 14:00 11/13/24 18:05 1.25 MG Lactulose 30 ml DAILY PO 11/09/24 10:00 11/13/24 09:16 30 ML Pantoprazole Sodium 40 mg DAILY IV 11/10/24 10:00 11/13/24 09:15 40 MG Methylprednisolone Sodium Succinate 40 mg Q8HR IV 11/13/24 14:00 11/15/24 13:59 11/13/24 21:25 40 MG Methylprednisolone Sodium Succinate 40 mg BID IV 11/15/24 10:00 11/17/24 09:59 Prednisone 40 mg BID PO 11/17/24 10:00 Latanoprost 1 drop DAILY EACHEYE 11/11/24 22:00 11/13/24 09:45 1 DROP Vancomycin HCl 100 ml @ 100 mls/hr Q8HR@0230,1030,1830 IV 11/13/24 10:30 11/13/24 18:54 100 MLS/HR Sucralfate 1 gm TID@0600,1130,2200 PO 11/13/24 11:30 11/13/24 21:25 1 GM Fluconazole 200 mg BID PO 11/13/24 22:00 11/13/24 21:25 200 MG Ceftriaxone Sodium 50 ml @ 100 mls/hr DAILY@09 IV 11/14/24 09:00 objective Gen.: Patient lying in bed in no apparent distress. On supplemental oxygen Head: Normocephalic, atraumatic. Eyes: EOMI/PERRLA. Ears: Normal hearing. Normal anatomy. Neck/trachea: Trachea midline, supple. Nose: Normal external anatomy. Mouth: Moist mucous membranes. Chest: Decreased air entry bilaterally. No wheezing or rhonchi. Cardiovascular: Positive S1, positive S2. Regular rate and rhythm. Abdomen: Positive bowel sounds in all 4 quadrants. Soft, non-tender, non- distended. : Deferred. Rectal: Deferred. Skin: Warm, dry. Intact. Extremities: 2+ radial pulses bilaterally. No lower extremity edema. Neuro: Awake, alert, oriented x3. No gross motor or sensory deficits. Cranial nerves II through XII intact. Gait not assessed. laboratory and microbiology Laboratory Tests 11/13/24 05:09 Test 11/13/24 05:09 Range/Units Serum Glucose 208 H 74-106 mg/dL Assessment/Plan Impression: Acute hypoxic respiratory failure Dependence on supplemental oxygen Atelectasis Leukocytosis COVID-19 Obesity, BMI 32 Events: Remains on supplemental O2 at 4 LPM Oxymizer Continue to taper O2 as tolerated Chest x-ray on 11/12 showed no acute changes. Patchy interstitial opacities. Head of bed elevation Aspiration precautions Continue IV steroids Continue bronchodilators Continue antibiotics Antifungal medication Incentive spirometry Sputum cultures grew yeast + GPCs. WBC trended up at 14.3 K Lovenox for DVT prophylaxis. Labs and imaging reviewed. Rest of plan as noted below. Plan: Continue supplemental O2 Titrate to keep O2 sats above 92%. Continue antibiotics Completed Remdesivir course Complete steroid course Incentive spirometry Monitor WBC Blood cultures, no growth after 5 days Sputum cultures grew yeast + GPCs. Monitor renal function. Monitor electrolytes. Supplement as necessary. Monitor ins and outs. Diet and lifestyle modifications for weight reduction Obesity - complicates all care DVT prophylaxis. Prognosis: Guarded given patient's multiple co-morbidities. Rest of plan per hospitalist and other consultants. Thank you Dr. Wood for allowing me to participate in this patient's care. Further recommendations will depend on the patient's clinical course. Please do not hesitate to contact me if you have any questions or concerns. This medical document was created using an electronic medical record system with [employer] dictation system. Although these documentations are being carefully reviewed, there may still be some phonetic and typographical changes. The errors are purely typographical, due to imperfection on the software program, and do not reflect any compromise in the patient's medical care. Dietary Evaluation Review Comments: 1) Promote good PO intake 2) Continue plan of care Expected Outcomes/Goals: 1) appetite and labs to improve 2) f/u in 5 days Plan discussed with: Patient, Other (LINDY Jones) LESTER KING MD Nov 13, 2024 22:03
[2024-11-14] VITALS (21 sets, daily range): BP systolic 115–141; BP diastolic 77–88; PULSE 77–110; RESP 19–24; TEMP 97.8–98.2; O2SAT 91–98
[2024-11-14 07:39] LABS: Chloride 107 mmol/L (98-107); Potassium 4.6 mmol/L (3.5-5.1); Sodium 139 mmol/L (136-145)
[2024-11-14 07:40] LABS: Anion Gap 8 (5-15); Basophils # (auto) 0 10 ^3/uL (0-0.2); Calcium 9.7 mg/dL (8.7-10.4); Carbon Dioxide 24 mmol/L (20-31); Eosinophils # (auto) 0 10 ^3/uL (0-0.8); Hematocrit 39.5 % (41.0-53.0); Hemoglobin 13.5 g/dL (13.5-17.5); Lymphocytes # (auto) 1.3 10 ^3/uL (0.4-5.4); Lymphocytes % (auto) 9.6 % (10.0-50.0); Mean Corpuscular Hemoglobin 32.3 pg (28.0-32.0); Mean Corpuscular Hgb Conc. 34.3 g/dL (32.0-36.0); Mean Corpuscular Volume 94.1 fL (80.0-100.0); Monocytes # (auto) 0.6 10 ^3/uL (0-1.3); Monocytes % (auto) 4.5 % (0.0-12.0); Neutrophils # (auto) 11.4 10 ^3/uL (1.6-8.6); Neutrophils % (auto) 85.9 % (37.0-80.0); Platelet Count (auto) 130 10^3/uL (140-450); Red Blood Cells 4.19 10^6/uL (4.5-5.90); Red Cell Distribution Width 13.8 % (11.8-14.3); White Blood Cell 13.3 10^3/uL (4.4-10.8)
[2024-11-14 07:45] LABS: Blood Urea Nitrogen 27 mg/dL (9-23); Glucose 157 mg/dL (74-106)
[2024-11-14] MEDS: cefTRIAXone 1GM/50ML D5W 50 ML IV SCH (09:39)
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
--- NOTE | 2024-11-14 23:22 | DVHPN2 ---
Progress Note - Dictate Date Seen: Nov 14, 2024 Medical Necessity Reason Pt with a Central, PICC or Fol: No Subjective Patient seen and examined at bedside. Remains on supplemental oxygen Overnight events reviewed. vital signs Vital Sign Date Time Temp Pulse Resp B/P (MAP) Pulse Ox O2 Delivery O2 Flow Rate FiO2 11/14/24 22:21 100 20 96 11/14/24 22:11 Nasal Cannula* 4 36 11/14/24 21:00 98.1 115/77 (90) 98.1 Total Intake and Output 11/13/24 11/13/24 11/14/24 15:00 23:00 07:00 Intake Total 150 ml 800 ml Output Total 350 ml Balance 150 ml 450 ml medications Current Medications Medications Dose Ordered Sig/Lalito Route Start Time Stop Time Status Last Admin Dose Admin Albuterol 90 mcg Q4HR IN 10/29/24 10:00 Cancel Patient Own Medication 1 BID PO 10/29/24 22:00 11/14/24 22:22 1 Enoxaparin Sodium 40 mg DAILY SC 10/30/24 10:00 11/14/24 09:40 40 MG Atorvastatin Calcium 20 mg HS PO 10/31/24 22:00 11/14/24 22:21 20 MG Guaifenesin 200 mg Q6HP PRN PO 11/01/24 09:45 11/14/24 01:52 200 MG Levothyroxine Sodium 125 mcg QAM@0600 PO 11/02/24 06:00 11/14/24 05:43 125 MCG Docusate Sodium 100 mg BID PO 11/05/24 10:00 11/14/24 22:19 100 MG Doxycycline Monohydrate 100 mg Q12HR PO 11/05/24 22:00 11/14/24 22:19 100 MG Acetaminophen 650 mg Q6HP PO 11/08/24 10:15 11/14/24 17:08 650 MG Ipratropium [place] 0.5 mg Q4HR NEB 11/08/24 14:00 11/14/24 22:11 0.5 MG Levalbuterol HCl 1.25 mg Q4HR NEB 11/08/24 14:00 11/14/24 22:11 1.25 MG Lactulose 30 ml DAILY PO 11/09/24 10:00 11/14/24 09:37 30 ML Pantoprazole Sodium 40 mg DAILY IV 11/10/24 10:00 11/14/24 09:39 40 MG Methylprednisolone Sodium Succinate 40 mg Q8HR IV 11/13/24 14:00 11/15/24 13:59 11/14/24 22:19 40 MG Methylprednisolone Sodium Succinate 40 mg BID IV 11/15/24 10:00 11/17/24 09:59 Prednisone 40 mg BID PO 11/17/24 10:00 Latanoprost 1 drop DAILY EACHEYE 11/11/24 22:00 11/14/24 09:39 1 DROP Sucralfate 1 gm TID@0600,1130,2200 PO 11/13/24 11:30 11/14/24 22:19 1 GM Fluconazole 200 mg BID PO 11/13/24 22:00 11/14/24 22:19 200 MG Ceftriaxone Sodium 50 ml @ 100 mls/hr DAILY@09 IV 11/14/24 09:00 11/14/24 09:39 100 MLS/HR objective Gen.: Patient lying in bed in no apparent distress. On supplemental oxygen Head: Normocephalic, atraumatic. Eyes: EOMI/PERRLA. Ears: Normal hearing. Normal anatomy. Neck/trachea: Trachea midline, supple. Nose: Normal external anatomy. Mouth: Moist mucous membranes. Chest: Decreased air entry bilaterally. No wheezing or rhonchi. Cardiovascular: Positive S1, positive S2. Regular rate and rhythm. Abdomen: Positive bowel sounds in all 4 quadrants. Soft, non-tender, non- distended. : Deferred. Rectal: Deferred. Skin: Warm, dry. Intact. Extremities: 2+ radial pulses bilaterally. No lower extremity edema. Neuro: Awake, alert, oriented x3. No gross motor or sensory deficits. Cranial nerves II through XII intact. Gait not assessed. laboratory and microbiology Laboratory Tests 11/14/24 05:14 Test 11/14/24 05:14 Range/Units Serum Glucose 157 H 74-106 mg/dL Assessment/Plan Impression: Acute hypoxic respiratory failure Dependence on supplemental oxygen Atelectasis Leukocytosis COVID-19 Obesity, BMI 32 Events: Remains on supplemental O2 at 4 LPM Oxymizer Taper O2 as tolerated Chest x-ray on 11/12 showed no acute changes. Patchy interstitial opacities. Head of bed elevation Aspiration precautions IV steroids - transition to PO steroids Continue bronchodilators Continue antibiotics - complete course Antifungal medication Incentive spirometry Sputum cultures grew yeast + GPCs. WBC trended down at 13.3 K Lovenox for DVT prophylaxis. LTAC evaluation Labs and imaging reviewed. Rest of plan as noted below. Plan: Continue supplemental O2 Titrate to keep O2 sats above 92%. Continue antibiotics Completed Remdesivir course Complete steroid course Incentive spirometry Monitor WBC Blood cultures, no growth after 5 days Sputum cultures grew yeast + GPCs. Monitor renal function. Monitor electrolytes. Supplement as necessary. Monitor ins and outs. Diet and lifestyle modifications for weight reduction Obesity - complicates all care DVT prophylaxis. Prognosis: Guarded given patient's multiple co-morbidities. Rest of plan per hospitalist and other consultants. Thank you Dr. Wood for allowing me to participate in this patient's care. Further recommendations will depend on the patient's clinical course. Please do not hesitate to contact me if you have any questions or concerns. This medical document was created using an electronic medical record system with [employer] computerized dictation system. Although these documentations are being carefully reviewed, there may still be some phonetic and typographical changes. The errors are purely typographical, due to imperfection on the software program, and do not reflect any compromise in the patient's medical care. Dietary Evaluation Review Comments: 1) Promote good PO intake 2) Continue plan of care Expected Outcomes/Goals: 1) appetite and labs to improve 2) f/u in 5 days Plan discussed with: Patient, Other (LINDY Jones) LESTER KING MD Nov 14, 2024 23:22
[2024-11-15] VITALS (21 sets, daily range): BP systolic 124–147; BP diastolic 77–95; PULSE 75–112; RESP 8–26; TEMP 97.2–97.9; O2SAT 91–98
[2024-11-15 07:00] LABS: Anion Gap 8 (5-15); Carbon Dioxide 23 mmol/L (20-31); Chloride 107 mmol/L (98-107); Potassium 4.6 mmol/L (3.5-5.1); Sodium 138 mmol/L (136-145)
[2024-11-15 07:03] LABS: Basophils # (auto) 0 10 ^3/uL (0-0.2); Basophils % (auto) 0.1 % (0.0-2.0); Eosinophils # (auto) 0 10 ^3/uL (0-0.8); Hematocrit 40.8 % (41.0-53.0); Hemoglobin 13.8 g/dL (13.5-17.5); Lymphocytes # (auto) 1.3 10 ^3/uL (0.4-5.4); Lymphocytes % (auto) 9.1 % (10.0-50.0); Mean Corpuscular Hemoglobin 31.5 pg (28.0-32.0); Mean Corpuscular Hgb Conc. 33.8 g/dL (32.0-36.0); Mean Corpuscular Volume 93.2 fL (80.0-100.0); Monocytes # (auto) 0.4 10 ^3/uL (0-1.3); Monocytes % (auto) 2.5 % (0.0-12.0); Neutrophils # (auto) 12.6 10 ^3/uL (1.6-8.6); Neutrophils % (auto) 88.3 % (37.0-80.0); Platelet Count (auto) 131 10^3/uL (140-450); Red Blood Cells 4.38 10^6/uL (4.5-5.90); Red Cell Distribution Width 13.8 % (11.8-14.3); White Blood Cell 14.3 10^3/uL (4.4-10.8)
[2024-11-15 07:05] LABS: BUN/Creatinine Ratio 34.7 (10.0-20.0)
[2024-11-15 07:06] LABS: Blood Urea Nitrogen 26 mg/dL (9-23); Glucose 164 mg/dL (74-106); Magnesium 2.5 mg/dL (1.6-2.6)
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
[2024-11-15] MEDS: methylPREDNISolone SOD SUCC 40 MG/ML VL IV SCH (11:49)
--- NOTE | 2024-11-15 23:02 | DVHPN2 ---
Progress Note - Dictate Date Seen: Nov 15, 2024 Medical Necessity Reason Pt with a Central, PICC or Fol: No Subjective Patient seen and examined at bedside. Remains on supplemental oxygen Overnight events reviewed. vital signs Vital Sign Date Time Temp Pulse Resp B/P (MAP) Pulse Ox O2 Delivery O2 Flow Rate FiO2 11/15/24 21:56 92 Oxymizer 6.0 11/15/24 21:56 87 26 11/15/24 21:56 N/A 11/15/24 21:00 97.9 131/84 (100) 97.9 Total Intake and Output 11/14/24 11/14/24 11/15/24 15:00 23:00 07:00 Intake Total 150 ml 800 ml 500 ml Output Total 400 ml 480 ml Balance 150 ml 400 ml 20 ml medications Current Medications Medications Dose Ordered Sig/Lalito Route Start Time Stop Time Status Last Admin Dose Admin Albuterol 90 mcg Q4HR IN 10/29/24 10:00 Cancel Patient Own Medication 1 BID PO 10/29/24 22:00 11/15/24 22:07 1 Enoxaparin Sodium 40 mg DAILY SC 10/30/24 10:00 11/15/24 09:38 40 MG Atorvastatin Calcium 20 mg HS PO 10/31/24 22:00 11/15/24 21:56 20 MG Guaifenesin 200 mg Q6HP PRN PO 11/01/24 09:45 11/14/24 01:52 200 MG Levothyroxine Sodium 125 mcg QAM@0600 PO 11/02/24 06:00 11/15/24 05:10 125 MCG Docusate Sodium 100 mg BID PO 11/05/24 10:00 11/15/24 21:56 100 MG Doxycycline Monohydrate 100 mg Q12HR PO 11/05/24 22:00 11/15/24 21:58 100 MG Acetaminophen 650 mg Q6HP PO 11/08/24 10:15 11/15/24 12:48 650 MG Ipratropium Williamson 0.5 mg Q4HR NEB 11/08/24 14:00 11/15/24 21:55 0.5 MG Levalbuterol HCl 1.25 mg Q4HR NEB 11/08/24 14:00 11/15/24 21:55 1.25 MG Lactulose 30 ml DAILY PO 11/09/24 10:00 11/15/24 09:29 30 ML Pantoprazole Sodium 40 mg DAILY IV 11/10/24 10:00 11/15/24 09:31 40 MG Methylprednisolone Sodium Succinate 40 mg BID IV 11/15/24 10:00 11/17/24 09:59 11/15/24 22:01 40 MG Prednisone 40 mg BID PO 11/17/24 10:00 Latanoprost 1 drop DAILY EACHEYE 11/11/24 22:00 11/15/24 09:31 1 DROP Sucralfate 1 gm TID@0600,1130,2200 PO 11/13/24 11:30 11/15/24 22:00 1 GM Fluconazole 200 mg BID PO 11/13/24 22:00 11/15/24 21:57 200 MG Ceftriaxone Sodium 50 ml @ 100 mls/hr DAILY@09 IV 11/14/24 09:00 11/15/24 09:29 100 MLS/HR objective Gen.: Patient lying in bed in no apparent distress. On supplemental oxygen Head: Normocephalic, atraumatic. Eyes: EOMI/PERRLA. Ears: Normal hearing. Normal anatomy. Neck/trachea: Trachea midline, supple. Nose: Normal external anatomy. Mouth: Moist mucous membranes. Chest: Decreased air entry bilaterally. No wheezing or rhonchi. Cardiovascular: Positive S1, positive S2. Regular rate and rhythm. Abdomen: Positive bowel sounds in all 4 quadrants. Soft, non-tender, non- distended. : Deferred. Rectal: Deferred. Skin: Warm, dry. Intact. Extremities: 2+ radial pulses bilaterally. No lower extremity edema. Neuro: Awake, alert, oriented x3. No gross motor or sensory deficits. Cranial nerves II through XII intact. Gait not assessed. laboratory and microbiology Laboratory Tests 11/15/24 05:31 Test 11/15/24 05:31 Range/Units Serum Glucose 164 H 74-106 mg/dL Assessment/Plan Impression: Acute hypoxic respiratory failure Dependence on supplemental oxygen Atelectasis Leukocytosis COVID-19 Obesity, BMI 32 Events: Remains on supplemental O2 at 4 LPM Oxymizer Taper O2 as tolerated Head of bed elevation Aspiration precautions IV steroids - transition to PO steroids Continue bronchodilators Continue antibiotics - complete course Antifungal medication Incentive spirometry Lactulose Sputum cultures grew yeast + GPCs. WBC trended up at 14.3 K Lovenox for DVT prophylaxis. Physical therapy evaluation LTAC evaluation Disposition per hospitalist. Chest x-ray on 11/12 showed no acute changes. Patchy interstitial opacities. Labs and imaging reviewed. Rest of plan as noted below. Plan: Continue supplemental O2 Titrate to keep O2 sats above 92%. Continue antibiotics Completed Remdesivir course Complete steroid course Incentive spirometry Monitor WBC Blood cultures, no growth after 5 days Sputum cultures grew yeast + GPCs. Monitor renal function. Monitor electrolytes. Supplement as necessary. Monitor ins and outs. Diet and lifestyle modifications for weight reduction Obesity - complicates all care DVT prophylaxis - Lovenox. Prognosis: Guarded given patient's multiple co-morbidities. Rest of plan per hospitalist and other consultants. Thank you Dr. Wood for allowing me to participate in this patient's care. Further recommendations will depend on the patient's clinical course. Please do not hesitate to contact me if you have any questions or concerns. This medical document was created using an electronic medical record system with [employer] computerized dictation system. Although these documentations are being carefully reviewed, there may still be some phonetic and typographical changes. The errors are purely typographical, due to imperfection on the software program, and do not reflect any compromise in the patient's medical care. Dietary Evaluation Review Comments: 1) Promote good PO intake 2) Continue plan of care Expected Outcomes/Goals: 1) appetite and labs to improve 2) f/u in 5 days Plan discussed with: Patient, Other (LINDY Pena) LESTER KING MD Nov 15, 2024 23:02
[2024-11-16] VITALS (18 sets, daily range): BP systolic 116–143; BP diastolic 71–90; PULSE 79–118; RESP 16–24; TEMP 97.4–98.1; O2SAT 92–99
[2024-11-16 06:31] LABS: Basophils # (auto) 0 10 ^3/uL (0-0.2); Basophils % (auto) 0.1 % (0.0-2.0); Eosinophils # (auto) 0 10 ^3/uL (0-0.8); Hematocrit 41.7 % (41.0-53.0); Hemoglobin 13.9 g/dL (13.5-17.5); Lymphocytes # (auto) 1.3 10 ^3/uL (0.4-5.4); Lymphocytes % (auto) 8.6 % (10.0-50.0); Mean Corpuscular Hemoglobin 31.4 pg (28.0-32.0); Mean Corpuscular Hgb Conc. 33.5 g/dL (32.0-36.0); Mean Corpuscular Volume 93.7 fL (80.0-100.0); Monocytes # (auto) 0.5 10 ^3/uL (0-1.3); Monocytes % (auto) 3.4 % (0.0-12.0); Neutrophils % (auto) 87.9 % (37.0-80.0); Platelet Count (auto) 127 10^3/uL (140-450); Red Blood Cells 4.45 10^6/uL (4.5-5.90); Red Cell Distribution Width 13.6 % (11.8-14.3); White Blood Cell 14.8 10^3/uL (4.4-10.8)
[2024-11-16 06:51] LABS: Anion Gap 5 (5-15); Carbon Dioxide 25 mmol/L (20-31); Potassium 4.6 mmol/L (3.5-5.1); Sodium 137 mmol/L (136-145)
[2024-11-16 06:52] LABS: Calcium 10.1 mg/dL (8.7-10.4)
[2024-11-16 06:57] LABS: BUN/Creatinine Ratio 29.1 (10.0-20.0)
[2024-11-16 07:05] LABS: Chloride 107 mmol/L (98-107); Glucose 161 mg/dL (74-106)
[2024-11-16 07:06] LABS: Blood Urea Nitrogen 23 mg/dL (9-23)
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
[2024-11-16] MEDS ORDERED: guaiFENesin-CODEINE Liq 5 ML UD PO PRN (11:15)
[2024-11-16] MEDS: guaiFENesin-CODEINE Liq 5 ML UD PO ONE (12:48)
--- NOTE | 2024-11-16 23:26 | DVHPN2 ---
Progress Note - Dictate Date Seen: Nov 16, 2024 Medical Necessity Reason Pt with a Central, PICC or Fol: No Subjective Patient seen and examined at bedside. Remains on supplemental oxygen Overnight events reviewed. vital signs Vital Sign Date Time Temp Pulse Resp B/P (MAP) Pulse Ox O2 Delivery O2 Flow Rate FiO2 11/16/24 21:00 98.1 113 17 123/72 (89) 93 98.1 11/16/24 18:33 Oxymizer 6.0 11/16/24 18:33 N/A Total Intake and Output 11/15/24 11/15/24 11/16/24 15:00 23:00 07:00 Intake Total 530 ml 800 ml 500 ml Output Total 350 ml Balance 530 ml 800 ml 150 ml medications Current Medications Medications Dose Ordered Sig/Lalito Route Start Time Stop Time Status Last Admin Dose Admin Albuterol 90 mcg Q4HR IN 10/29/24 10:00 Cancel objective Gen.: Patient lying in bed in no apparent distress. On supplemental oxygen Head: Normocephalic, atraumatic. Eyes: EOMI/PERRLA. Ears: Normal hearing. Normal anatomy. Neck/trachea: Trachea midline, supple. Nose: Normal external anatomy. Mouth: Moist mucous membranes. Chest: Decreased air entry bilaterally. No wheezing or rhonchi. Cardiovascular: Positive S1, positive S2. Regular rate and rhythm. Abdomen: Positive bowel sounds in all 4 quadrants. Soft, non-tender, non- distended. : Deferred. Rectal: Deferred. Skin: Warm, dry. Intact. Extremities: 2+ radial pulses bilaterally. No lower extremity edema. Neuro: Awake, alert, oriented x3. No gross motor or sensory deficits. Cranial nerves II through XII intact. Gait not assessed. laboratory and microbiology Laboratory Tests 11/16/24 05:34 Test 11/16/24 05:34 Range/Units Serum Glucose 161 H 74-106 mg/dL Assessment/Plan Impression: Acute hypoxic respiratory failure Dependence on supplemental oxygen Atelectasis Leukocytosis COVID-19 Obesity, BMI 32 Events: Remains on supplemental O2 at 6 LPM Oxymizer Taper O2 as tolerated Head of bed elevation Aspiration precautions Continue steroids - PO prednisone Continue bronchodilators Continue antibiotics - complete course Antifungal medication Antitussive for cough Incentive spirometry Lactulose Sputum cultures grew yeast + GPCs. Monitor WBC - currently 14.8 K Lovenox for DVT prophylaxis. Physical therapy evaluation LTAC placement Disposition per hospitalist. Chest x-ray on 11/12 showed no acute changes. Patchy interstitial opacities. Labs and imaging reviewed. Rest of plan as noted below. Plan: Continue supplemental O2 Titrate to keep O2 sats above 92%. Continue antibiotics Completed Remdesivir course Complete steroid course Incentive spirometry Monitor WBC Blood cultures, no growth after 5 days Sputum cultures grew yeast + GPCs. Monitor renal function. Monitor electrolytes. Supplement as necessary. Monitor ins and outs. Diet and lifestyle modifications for weight reduction Obesity - complicates all care DVT prophylaxis - Lovenox. Prognosis: Guarded given patient's multiple co-morbidities. Rest of plan per hospitalist and other consultants. Thank you Dr. Wood for allowing me to participate in this patient's care. Further recommendations will depend on the patient's clinical course. Please do not hesitate to contact me if you have any questions or concerns. This medical document was created using an electronic medical record system with [employer] computerized dictation system. Although these documentations are being carefully reviewed, there may still be some phonetic and typographical changes. The errors are purely typographical, due to imperfection on the software program, and do not reflect any compromise in the patient's medical care. Dietary Evaluation Review Comments: 1) Promote good PO intake 2) Continue plan of care Expected Outcomes/Goals: 1) appetite and labs to improve 2) f/u in 5 days Plan discussed with: Patient, Other (LINDY Pena) LESTER KING MD Nov 16, 2024 23:26
[2024-11-17] MEDS ORDERED: predniSONE 20 MG TAB PO SCH (10:00)
== END 2024-11-16 20:35 | DRG 871 ==
LOC: EDBD 16:11 → ER 16:11 → OVERFLOW 21:14 → TELE-EAST 10-29 17:12 → EAST 10-31 08:36 → TELE-EAST 11-09 04:08 → ICU WEST 11-09 10:23 → TELE-EAST 11-11 18:14 → EAST 11-14 08:15
PROVIDERS: ADMIT Student in an Organized Health Care Education/Training Program; ATTEND Student in an Organized Health Care Education/Training Program
PROC: XW033E5 Introduction of Remdesivir Anti-infective into Peripheral Vein, Percutaneous Approach, New Technology Group 5 (ICD-10-PCS; 2024-10-29)
PROC: 5A0935A Assistance with Respiratory Ventilation, Less than 24 Consecutive Hours, High Flow/Velocity Cannula (ICD-10-PCS; principal; 2024-11-06)
PROC: 5A0935A Assistance with Respiratory Ventilation, Less than 24 Consecutive Hours, High Flow/Velocity Cannula (ICD-10-PCS; 2024-11-07)
PROC: 5A09357 Assistance with Respiratory Ventilation, Less than 24 Consecutive Hours, Continuous Positive Airway Pressure (ICD-10-PCS; 2024-11-07)
PROC: 5A0935A Assistance with Respiratory Ventilation, Less than 24 Consecutive Hours, High Flow/Velocity Cannula (ICD-10-PCS; 2024-11-08)
PROC: 5A09357 Assistance with Respiratory Ventilation, Less than 24 Consecutive Hours, Continuous Positive Airway Pressure (ICD-10-PCS; 2024-11-08)
PROC: 5A0935A Assistance with Respiratory Ventilation, Less than 24 Consecutive Hours, High Flow/Velocity Cannula (ICD-10-PCS; 2024-11-09)
PROC: 5A09357 Assistance with Respiratory Ventilation, Less than 24 Consecutive Hours, Continuous Positive Airway Pressure (ICD-10-PCS; 2024-11-09)
PROC: 5A0935A Assistance with Respiratory Ventilation, Less than 24 Consecutive Hours, High Flow/Velocity Cannula (ICD-10-PCS; 2024-11-10)
DX: A41.89 Other specified sepsis (principal); J12.82 Pneumonia due to coronavirus disease 2019; J96.01 Acute respiratory failure with hypoxia; N17.0 Acute kidney failure with tubular necrosis; U07.1 COVID-19; J15.9 Unspecified bacterial pneumonia; J15.69 Pneumonia due to other Gram-negative bacteria; N30.00 Acute cystitis without hematuria; E87.3 Alkalosis; E78.5 Hyperlipidemia, unspecified; R74.01 Elevation of levels of liver transaminase levels; I95.9 Hypotension, unspecified; E66.9 Obesity, unspecified; J98.4 Other disorders of lung; I12.9 Hypertensive chronic kidney disease with stage 1 through stage 4 chronic kidney disease, or unspecified chronic kidney disease; N18.9 Chronic kidney disease, unspecified; E03.9 Hypothyroidism, unspecified; K76.0 Fatty (change of) liver, not elsewhere classified; Z68.32 Body mass index [BMI] 32.0-32.9, adult; Z79.899 Other long term (current) drug therapy; Z86.73 Personal history of transient ischemic attack (TIA), and cerebral infarction without residual deficits; Z79.2 Long term (current) use of antibiotics; Z85.6 Personal history of leukemia; Z83.3 Family history of diabetes mellitus; Z99.81 Dependence on supplemental oxygen
CPT/HCPCS: 31720; 36415; 36600; 71045; 71275; 76705; 80048; 80053; 80061; 80202; 80307; 81001; 82306; 82565; 82607; 82728; 82805; 83036; 83605; 83615; 83735; 83880; 84439; 84443; 85007; 85025; 85027; 85610; 85730; 86141; 87040; 87070; 87081; 87086; 87205; 87426; 87804; 93005; 93970; 94640; 94660; 94668; 96361; 96374; 97110; 97116; 97163; 97530; 99291; G0378; J1100; J1450; J2185; J2470